=== PATIENT | male | born 1935 | race Caucasian/White ===

== ENCOUNTER → 2016-09-26 | Outpatient (CLI) | payer MEDICARE, OTHER ==
[~2016-09-26] MED LIST: REGADENOSON 0.4 MG/5 ML SYRINGE IV ONE
--- NOTE | 2016-09-26 11:52 | NM ---
EXAMINATION TYPE: NM stress cardiolite complete DATE OF EXAM: 09/26/2016 COMPARISON: NONE HISTORY: Atherosclerotic heart disease per order. History of hypertension, diabetes, and prior heart catheterization with three-vessel CABG presents with palpitations per patient. TECHNIQUE: After the intravenous administration of 10.96 mCi Tc 99m Sestamibi - Rest images obtained 45 minutes post injection. The patient exercised using a VIRGILIO protocol and 1 minute prior to peak exercise was injected with 27.3 mCi Tc 99m Sestamibi - Stress images obtained 20 minutes post inject ion. FINDINGS: Targeted heart rate was achieved during performance of the study. Review of stress and rest SPECT huong ges demonstrates no distinct perfusion abnormality. Gated analysis shows normal wall motion with an estimated left ventricular ejection fraction of 65 %. IMPRESSION: No scintigraphic evidence for reversible ischemia
--- NOTE | 2016-09-26 12:34 | EST ---
DATE OF SERVICE: 09/26/16 TYPE OF REPORT: Stress Cardiolite Scan INDICATIONS: Palpitations. BASELINE HEART RATE: 52 BASELINE BLOOD PRESSURE: 153/64 MAXIMUM HEART RATE: 107 MAXIMUM BLOOD PRESSURE: 22/60 85% MPHR 119 100% MPHR 145 METS: 8.1 MAXIMUM STAGE REACHED: II TOTAL EXERCISE TIME: 6:45 minutes Baseline EKG revealed a sinus mechanism with first degree AV block and rhythm strip suggestive of Wenckebach type phenomenon with narrow QRS. The patient's EKG therefore, revealed second degree AV block without ST segment changes. He was advised Lexiscan stress test but I switched it to the walking mainly because of conduction system disease. The patient walked for six minutes 45 seconds, showed a maximum heart rate of 110 beats per minute, had right sided PVC. No angina. Part of the stress test is considered inconclusive. The LA interval actually got better with exercise. This is an inconclusive stress test by EKG criteria without angina but isolated PVCs are noted. The nuclear scan images which are more pertinent will be reported by the radiologist. If ischemia is suspected, coronary angiography may be a better approach and I discussed this with referring Dr. Tien Woody. [place]
== END ==
LOC: RADNMMAIN 08:56
PROVIDERS: ATTEND Internal Medicine Cardiovascular Disease
DX: I25.10 Atherosclerotic heart disease of native coronary artery without angina pectoris (principal); R94.39 Abnormal result of other cardiovascular function study
CPT/HCPCS: 93017; 78452; A9500

== ENCOUNTER 2016-11-08 13:59 | Inpatient (IN) | payer MEDICARE, OTHER ==
[2016-11-08] MEDS ORDERED: SODIUM CHLORIDE 0.9% 500 ML IV STA (14:19)
--- NOTE | 2016-11-08 14:25 | ED ---
General Adult HPI - General Chief complaint: Dizziness Stated complaint: NEAR SYNCOPE Time Seen by Provider: 11/08/16 14:05 Source: patient, RN notes reviewed Mode of arrival: ambulatory Limitations: no limitations - History of Present Illness Initial comments: This is an 80-year-old male with past medical history significant for bypass surgery hypertension and diabetes. Patient states today while sitting at home he became very dizzy and his chair. Patient states he felt so uncomfortable that he did not believe he can stand. Patient states he also was feeling some extremely strong heartbeats which felt like extra beats. Patient states he had no chest pain he denies any shortness of breath or difficulty breathing. Patient states currently lying in bed he feels better. Patient denies any recent fever chills or cough. Patient denies headache patient denies any numbness weakness. Patient states he never felt as though he was given a passout but he thought he might fall over.. Patient denies any abdominal pain patient denies nausea vomiting diarrhea recently. - Related Data Home Medications Medication Instructions Recorded Confirmed Aspirin 81 mg PO HS 11/08/16 11/08/16 Atorvastatin Calcium [Lipitor] 80 mg PO HS 11/08/16 11/08/16 Multivitamins, Thera [Multivitamin 1 tab PO DAILY 11/08/16 11/08/16 (formulary)] Nitroglycerin Sl Tabs [Nitrostat] 0.4 mg SUBLINGUAL Q5M PRN 11/08/16 11/08/16 Potassium Chloride [Klor-Con 10] 10 meq PO DAILY@1200 11/08/16 11/08/16 Valsartan [Diovan] 320 mg PO HS 11/08/16 11/08/16 hydrALAZINE HCL [Hydralazine HCl] 50 mg PO QAM 11/08/16 11/08/16 hydrALAZINE HCL [Hydralazine HCl] 50 mg PO TID 11/08/16 11/08/16 metFORMIN HCL [Glucophage] 500 mg PO AC-BID 11/08/16 11/08/16 Allergies Allergy/AdvReac Type Severity Reaction Status Date / Time No Known Allergies Allergy Verified 11/08/16 14:27 Review of Systems ROS Statement: Those systems with pertinent positive or pertinent negative responses have been documented in the HPI. ROS Other: All systems not noted in ROS Statement are negative. Past Medical History Past Medical History: Atrial Fibrillation, Diabetes Mellitus, Hyperlipidemia, Hypertension History of Any Multi-Drug Resistant Organisms: None Reported Past Surgical History: Coronary Bypass/CABG Additional Past Surgical History / Comment(s): prostate removal Past Psychological History: No Psychological Hx Reported Past Alcohol Use History: None Reported, Occasional Past Drug Use History: None Reported General Exam - General Exam Comments Initial Comments: GENERAL: Patient is well-developed and well-nourished. Patient is nontoxic and well- hydrated and is in mild distress. ENT: Neck is soft and supple. No significant lymphadenopathy is noted. Oropharynx is clear. Moist mucous membranes. Neck has full range of motion without eliciting any pain. EYES: The sclera were anicteric and conjunctiva were pink and moist. Extraocular movements were intact and pupils were equal round and reactive to light. Eyelids were unremarkable. PULMONARY: Unlabored respirations. Good breath sounds bilaterally. No audible rales rhonchi or wheezing was noted. CARDIOVASCULAR: There is a regular rate and rhythm without any murmurs gallops or rubs. ABDOMEN: Soft and nontender with normal bowel sounds. No palpable organomegaly was noted. There is no palpable pulsatile mass. SKIN: Skin is clear with no lesions or rashes and otherwise unremarkable. NEUROLOGIC: Patient is alert and oriented x3. Cranial nerves II through XII are grossly intact. Motor and sensory are also intact. Normal speech, volume and content. Symmetrical smile. MUSCULOSKELETAL: Normal extremities with adequate strength and full range of motion. No lower extremity swelling or edema. No calf tenderness. LYMPHATICS: No significant lymphadenopathy is noted PSYCHIATRIC: Normal psychiatric evaluation. Normal interpersonal interactions appears functionally intact in deals appropriately with others. No signs of depression. No signs of anxiety. Limitations: no limitations Course Vital Signs 11/08/16 11/08/16 11/08/16 14:02 15:00 15:02 Temperature 97.6 F 98.8 F Pulse Rate 67 65 Pulse Rate [ Sitting] Pulse Rate [ Standing] Pulse Rate [ 65 Supine] Respiratory 18 18 18 Rate Blood Pressure 161/57 158/70 Blood Pressure [Sitting] Blood Pressure [Standing] Blood Pressure 158/70 [Supine] O2 Sat by Pulse 98 97 Oximetry 11/08/16 11/08/16 15:03 15:06 Temperature Pulse Rate Pulse Rate [ 73 Sitting] Pulse Rate [ 75 Standing] Pulse Rate [ Supine] Respiratory 18 18 Rate Blood Pressure Blood Pressure 176/87 [Sitting] Blood Pressure 163/69 [Standing] Blood Pressure [Supine] O2 Sat by Pulse Oximetry Medical Decision Making - Medical Decision Making EKG shows sinus rhythm with a second-degree AV block it looks like a type II patient also has quite a few PVCs rate is 67 bpm TN interval is 274 Miguel is 86 Q-T intervals 484 QTC is 511. X-ray shows no acute abnormality. Patient has had no further symptoms while lying in bed. I spoke with Dr. Lovett he wanted the patient to be admitted and have cardiology consult I wrote admitting orders I consult to cardiology. - Lab Data Result diagrams: 11/08/16 14:17 11/08/16 14:17 Lab Results 11/08/16 11/08/16 11/08/16 Range/Units 14:17 14:17 14:17 WBC 7.6 (3.8-10.6) k/uL RBC 4.12 L (4.30-5.90) m/uL Hgb 13.3 (13.0-17.5) gm/dL Hct 38.5 L (39.0-53.0) % MCV 93.6 (80.0-100.0) fL MCH 32.2 (25.0-35.0) pg MCHC 34.4 (31.0-37.0) g/dL RDW 12.9 (11.5-15.5) % Plt Count 255 (150-450) k/uL Neutrophils % 72 % Lymphocytes % 20 % Monocytes % 5 % Eosinophils % 2 % Basophils % 0 % Neutrophils # 5.5 (1.3-7.7) k/uL Lymphocytes # 1.5 (1.0-4.8) k/uL Monocytes # 0.4 (0-1.0) k/uL Eosinophils # 0.2 (0-0.7) k/uL Basophils # 0.0 (0-0.2) k/uL PT (9.0-12.0) sec INR (<1.2) APTT (22.0-30.0) sec Sodium 140 (137-145) mmol/L Potassium 3.9 (3.5-5.1) mmol/L Chloride 107 (98-107) mmol/L Carbon Dioxide 22 (22-30) mmol/L Anion Gap 11 mmol/L BUN 29 H (9-20) mg/dL Creatinine 1.58 H (0.66-1.25) mg/dL Est GFR (MDRD) Af Amer 51 (>60 ml/min/1.73 sqM) Est GFR (MDRD) Non-Af 42 (>60 ml/min/1.73 sqM) Glucose 162 H (74-99) mg/dL Calcium 9.1 (8.4-10.2) mg/dL Total Bilirubin 0.6 (0.2-1.3) mg/dL AST 25 (17-59) U/L ALT 32 (21-72) U/L Alkaline Phosphatase 70 (38-126) U/L Total Creatine Kinase 44 L (55-170) U/L CK-MB (CK-2) 0.4 (0.0-2.4) ng/mL CK-MB (CK-2) Rel Index 0.9 Troponin I 0.013 (0.000-0.034) ng/mL Total Protein 6.2 L (6.3-8.2) g/dL Albumin 3.5 (3.5-5.0) g/dL Urine Color Urine Appearance (Clear) Urine pH (5.0-8.0) Ur Specific [place] (1.001-1.035) Urine Protein (Negative) Urine Glucose (UA) (Negative) Urine Ketones (Negative) Urine Blood (Negative) Urine Nitrite (Negative) Urine Bilirubin (Negative) Urine Urobilinogen (<2.0) mg/dL Ur Leukocyte Esterase (Negative) 11/08/16 11/08/16 Range/Units 14:17 15:13 WBC (3.8-10.6) k/uL RBC (4.30-5.90) m/uL Hgb (13.0-17.5) gm/dL Hct (39.0-53.0) % MCV (80.0-100.0) fL MCH (25.0-35.0) pg MCHC (31.0-37.0) g/dL RDW (11.5-15.5) % Plt Count (150-450) k/uL Neutrophils % % Lymphocytes % % Monocytes % % Eosinophils % % Basophils % % Neutrophils # (1.3-7.7) k/uL Lymphocytes # (1.0-4.8) k/uL Monocytes # (0-1.0) k/uL Eosinophils # (0-0.7) k/uL Basophils # (0-0.2) k/uL PT 10.5 (9.0-12.0) sec INR 1.0 (<1.2) APTT 24.3 (22.0-30.0) sec Sodium (137-145) mmol/L Potassium (3.5-5.1) mmol/L Chloride (98-107) mmol/L Carbon Dioxide (22-30) mmol/L Anion Gap mmol/L BUN (9-20) mg/dL Creatinine (0.66-1.25) mg/dL Est GFR (MDRD) Af Amer (>60 ml/min/1.73 sqM) Est GFR (MDRD) Non-Af (>60 ml/min/1.73 sqM) Glucose (74-99) mg/dL Calcium (8.4-10.2) mg/dL Total Bilirubin (0.2-1.3) mg/dL AST (17-59) U/L ALT (21-72) U/L Alkaline Phosphatase (38-126) U/L Total Creatine Kinase (55-170) U/L CK-MB (CK-2) (0.0-2.4) ng/mL CK-MB (CK-2) Rel Index Troponin I (0.000-0.034) ng/mL Total Protein (6.3-8.2) g/dL Albumin (3.5-5.0) g/dL Urine Color Yellow Urine Appearance Clear (Clear) Urine pH 6.5 (5.0-8.0) Ur Specific [place] 1.012 (1.001-1.035) Urine Protein Negative (Negative) Urine Glucose (UA) Negative (Negative) Urine Ketones Negative (Negative) Urine Blood Negative (Negative) Urine Nitrite Negative (Negative) Urine Bilirubin Negative (Negative) Urine Urobilinogen <2.0 (<2.0) mg/dL Ur Leukocyte Esterase Negative (Negative) Disposition Clinical Impression: Dizziness, Second degree AV block, PVCs (premature ventricular contractions) Disposition: ADMITTED IP TO THIS [facility] Referrals: Tato Bell Jr, [Primary Care Provider] - 1-2 days Time of Disposition: 16:15
[2016-11-08 14:41] LABS: Basophils % (A) 0 %; CH 31.4; CHCM 33.7; Eosinophils # (A) 0.2 k/uL (0-0.7); Eosinophils % (A) 2 %; HCT 38.5 % (39.0-53.0); HDW 2.37; HGB 13.3 gm/dL (13.0-17.5); Luc % (Auto) 1; Lymphocytes # (A) 1.5 k/uL (1.0-4.8); Lymphocytes % (A) 20 %; MCH 32.2 pg (25.0-35.0); MCHC 34.4 g/dL (31.0-37.0); MCV 93.6 fL (80.0-100.0); Mean Platelet Volume 7.6; Monocytes # (A) 0.4 k/uL (0-1.0); Monocytes % (A) 5 %; Neutrophils # (A) 5.5 k/uL (1.3-7.7); Neutrophils % (A) 72 %; RBC 4.12 m/uL (4.30-5.90); RDW 12.9 % (11.5-15.5); WBC 7.6 k/uL (3.8-10.6); WBC (Perox) 7.69
[2016-11-08 14:44] LABS: Calcium 9.1 mg/dL (8.4-10.2); Potassium 3.9 mmol/L (3.5-5.1); Total Bilirubin 0.6 mg/dL (0.2-1.3); Total Protein 6.2 g/dL (6.3-8.2)
--- NOTE | 2016-11-08 15:00 | XR ---
EXAMINATION TYPE: XR chest 2V DATE OF EXAM: 11/08/2016 COMPARISON: NONE HISTORY: History of open heart surgery presents with weakness and dizziness. Syncope. TECHNIQUE: Frontal and lateral views of the chest are obtained. FINDINGS: Post CABG changes with mediastinal clips and sternal wires is present. There is no focal a ir space opacity, pleural effusion, or pneumothorax seen. The cardiac silhouette size is mildly enla rged. The osseous structures are intact. IMPRESSION: Mild cardiomegaly without acute pulmonary process.
[2016-11-08 15:02] LABS: Partial Thromboplastin Time 24.3 sec (22.0-30.0); Prothrombin Time 10.5 sec (9.0-12.0)
[2016-11-08 15:11] LABS: Creatine Kinase MB 0.4 ng/mL (0.0-2.4); Troponin I 0.013 ng/mL (0.000-0.034)
[2016-11-08 15:24] LABS: Appearance,Urine Clear (Clear); Bilirubin,Urine Negative (Negative); Glucose,Urine (UA) Negative (Negative); Ketones,Urine Negative (Negative); Leukocyte Esterase,Urine Negative (Negative); Nitrite,Urine Negative (Negative); PH, Urine 6.5 (5.0-8.0); Protein,Urine Negative (Negative); Specific Gravity,Urine 1.012 (1.001-1.035); UA Billing (MACRO vs. MICRO) CHEM; Urobilinogen,Urine <2.0 mg/dL (<2.0)
[2016-11-08] MEDS ORDERED: SODIUM CHLORIDE 0.9% 1,000 ML IV ONE (16:18)
[2016-11-08] MEDS ORDERED: NITROGLYCERIN SL TABS 0.4 MG TAB SUBLINGUAL PRN (21:22)
[2016-11-08] MEDS: ATORVASTATIN 80 MG TAB PO SCH (21:35)
[2016-11-08] MEDS ORDERED: hydrALAZINE HCL 50 MG TAB PO SCH (22:00)
[2016-11-08] MEDS ORDERED: hydrALAZINE HCL 50 MG TAB PO STA (23:00)
[2016-11-08 23:51] VITALS: BMI 27.1
[2016-11-09] MEDS: hydrALAZINE HCL 50 MG TAB PO SCH ×4 (00:06→20:56)
[2016-11-09 06:11] LABS: Glucose,Whole Blood 96 mg/dL (75-99)
--- NOTE | 2016-11-09 09:27 | P.CRDCN ---
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 He has history of hypertension, type 2 diabetes, hyperlipidemia, history of prostate cancer with prior prostate removal. Patient presents to the hospital with symptoms of dizziness and lightheadedness. He states that yesterday he noticed both of his hands became numb and tingly, shortly thereafter patient states he became dizzy and felt lightheaded, he states that symptoms have progressed to the point where he felt that he needed to lie down. States that he felt his heart occasionally pounding. EMS was called. Blood pressure on EMS arrival 120/40, heart rate 37 , blood sugars 1:30, 96% on room air. EKG on arrival here showed a sinus rhythm with second-degree type I heart block and occasional PVC. Chest x-ray revealed mild cardiomegaly without any acute pulmonary process. Blood pressure on arrival here 160/50, heart rate 60, 98% on 2 L. Blood pressure this morning 149/80, heart rate in the 50s. CBC, WBC 7.6, hemoglobin 13.3, platelet count 255. Potassium 3.9, BUN 29, creatinine 1.5. Troponin 0.013. According to the patient, he states over the past several months he has been noted to be somewhat bradycardic and his emergency medical dispatcher had taken him off Toprol in June or July of this year. At present he is not on any rate lowering medications. Past Medical History Past Medical History: Atrial Fibrillation, Diabetes Mellitus, Hyperlipidemia, Hypertension History of Any Multi-Drug Resistant Organisms: None Reported Past Surgical History: Coronary Bypass/CABG Additional Past Surgical History / Comment(s): prostate removal Past Anesthesia/Blood Transfusion Reactions: No Reported Reaction Past Psychological History: No Psychological Hx Reported Smoking Status: Never smoker Past Alcohol Use History: None Reported, Occasional Past Drug Use History: None Reported - Past Family History Mother Family Medical History: CVA/TIA Additional Family Medical History / Comment(s): mother had CVA at age 85 Father Family Medical History: Cancer Additional Family Medical History / Comment(s): from throat cancer Brother(s) Family Medical History: Cancer Additional Family Medical History / Comment(s): from lung cancer Medications and Allergies Home Medications Medication Instructions Recorded Confirmed Type Aspirin 81 mg PO HS 11/08/16 11/08/16 History Atorvastatin Calcium [Lipitor] 80 mg PO HS 11/08/16 11/08/16 History Multivitamins, Thera [Multivitamin 1 tab PO DAILY 11/08/16 11/08/16 History (formulary)] Nitroglycerin Sl Tabs [Nitrostat] 0.4 mg SUBLINGUAL Q5M PRN 11/08/16 11/08/16 History Potassium Chloride [Klor-Con 10] 10 meq PO DAILY@1200 11/08/16 11/08/16 History Valsartan [Diovan] 320 mg PO HS 11/08/16 11/08/16 History hydrALAZINE HCL [Hydralazine HCl] 100 mg PO TID 11/08/16 11/08/16 History metFORMIN HCL [Glucophage] 500 mg PO AC-BID 11/08/16 11/08/16 History Allergies Allergy/AdvReac Type Severity Reaction Status Date / Time No Known Allergies Allergy Verified 11/08/16 23:39 Physical Exam Vitals: Vital Signs Temp Pulse Pulse Pulse Pulse Resp BP 11/09/16 08:30 96.8 F L 79 18 11/09/16 04:00 97.4 F L 52 L 17 11/09/16 00:00 97.3 F L 68 17 11/08/16 23:17 64 18 189/85 11/08/16 23:07 60 18 195/91 11/08/16 22:47 65 18 198/62 11/08/16 22:13 98.0 F 63 18 192/78 11/08/16 21:39 98.1 F 46 L 18 165/78 11/08/16 20:24 68 18 183/81 11/08/16 19:21 50 L 18 150/63 11/08/16 17:00 97.9 F 63 18 135/60 11/08/16 15:06 75 18 11/08/16 15:03 73 18 11/08/16 15:02 98.8 F 65 18 158/70 11/08/16 15:00 50 L 65 18 11/08/16 14:02 97.6 F 67 18 161/57 BP BP BP Pulse Ox 11/09/16 08:30 149/86 96 11/09/16 04:00 127/37 94 L 11/09/16 00:00 157/87 94 L 11/08/16 23:17 99 11/08/16 23:07 99 11/08/16 22:47 99 11/08/16 22:13 98 11/08/16 21:39 97 11/08/16 20:24 97 11/08/16 19:21 98 11/08/16 17:00 96 11/08/16 15:06 163/69 11/08/16 15:03 176/87 11/08/16 15:02 97 11/08/16 15:00 158/70 11/08/16 14:02 98 Intake and Output 11/08/16 11/09/16 11/09/16 22:59 06:59 14:59 Intake Total 375 Balance 375 Intake: IV 375 Sodium Chloride 0.9% 1, 375 000 ml @ 75 mls/hr IV . [id number] Rx#:[id number] Other: Voiding Method Toilet # Voids 1 Weight 76.1 kg 76.2 kg PHYSICAL EXAMINATION: HEENT: Head is atraumatic, normocephalic. Pupils equal, round. Neck is supple. There is no elevated jugular venous pressure. HEART EXAMINATION: Heart S1, S2 normal. No murmur or gallop heard. CHEST EXAMINATION: Lungs are clear to auscultation and precussion. No chest wall tenderness is noted on palpation or with deep breathing. ABDOMEN: Soft, nontender. Bowel sounds are heard. No organomegaly noted. EXTREMITIES: 2+ peripheral pulses with no evidence of peripheral edema and no calf tenderness noted. NEUROLOGIC patient is awake, alert and oriented -3. . Results 11/08/16 14:17 11/08/16 14: Cardiac Enzymes 11/08/16 11/08/16 Range/Units : 14: AST 25 (17-59) U/L CK-MB (CK-2) 0.4 (0.0-2.4) ng/mL Troponin I 0.013 (0.000-0.034) ng/mL Coagulation 11/08/16 Range/Units 14:17 PT 10.5 (9.0-12.0) sec APTT 24.3 (22.0-30.0) sec CBC 11/08/16 Range/Units 14:17 WBC 7.6 (3.8-10.6) k/uL RBC 4.12 L (4.30-5.90) m/uL Hgb 13.3 (13.0-17.5) gm/dL Hct 38.5 L (39.0-53.0) % Plt Count 255 (150-450) k/uL Comprehensive Metabolic Panel 11/08/16 Range/Units 14:17 Sodium 140 (137-145) mmol/L Potassium 3.9 (3.5-5.1) mmol/L Chloride 107 (98-107) mmol/L Carbon Dioxide 22 (22-30) mmol/L BUN 29 H (9-20) mg/dL Creatinine 1.58 H (0.66-1.25) mg/dL Glucose 162 H (74-99) mg/dL Calcium 9.1 (8.4-10.2) mg/dL AST 25 (17-59) U/L ALT 32 (21-72) U/L Alkaline Phosphatase 70 (38-126) U/L Total Protein 6.2 L (6.3-8.2) g/dL Albumin 3.5 (3.5-5.0) g/dL Current Medications Generic Name Dose Route Start Last Admin Trade Name Freq PRN Reason Stop Dose Admin Aspirin 81 mg 11/09/16 09:00 Aspirin PO DAILY [facility] Atorvastatin Calcium 80 mg 11/08/16 21:00 11/08/16 21:35 Lipitor PO Not Given HS [facility] Hydralazine HCl 100 mg 11/08/16 23:30 11/09/16 00:06 Apresoline PO Not Given TID [facility] Metformin HCl 500 mg 11/09/16 07:30 Glucophage PO BID-W/MEALS [facility] Multivitamins 1 each 11/09/16 12:00 Theragran PO DAILY@1200 [facility] Nitroglycerin 0.4 mg 11/08/16 21:22 Nitrostat SUBLINGUAL Q5M PRN Chest Pain Potassium Chloride 10 meq 11/09/16 09:00 K-Dur 10 PO DAILY [facility] Valsartan 320 mg 11/09/16 21:00 Diovan PO HS [facility] Intake and Output 11/08/16 11/09/16 11/09/16 22:59 06:59 14:59 Intake Total 375 Balance 375 Intake: IV 375 Sodium Chloride 0.9% 1, 375 000 ml @ 75 mls/hr IV . [id number] ONE Rx#:[id number] Other: Voiding Method Toilet # Voids 1 Weight 76.1 kg 76.2 kg 11/08/16 14:17 11/08/16 14:17 EKG Interpretations (text) EKG shows sinus rhythm with second-degree type I heart block and occasional PVCs. Assessment and Plan Plan: Assessment and plan #1 symptoms of dizziness and lightheadedness, EKG shows second-degree type I heart block #2 known history of coronary artery disease with prior bypass surgery #3 hypertension #4 hyperlipidemia # 5 history of prostate cancer with prior prostate removal #6 type 2 diabetes Plan We will obtain an echocardiogram with Doppler study, obtain free T4 and TSH level. Patient is not on any rate lowering medications, was explained to the patient and his that he may require a permanent pacemaker. Further recommendations to follow. DNP note has been reviewed, I agree with a documented findings and plan of care. Patient was seen and examined.
--- NOTE | 2016-11-09 11:07 | P.HPIM ---
History of Present Illness H&P Date: 11/09/16 Chief Complaint: Dizziness 80-year-old male who presented to the emergency room on 11/08/2016 with a chief complaint of dizziness. The patient had a history of coronary artery disease with prior CABG, hypertension, and diabetes mellitus. He states he sees Dr. Woody as his primary head refrigeration engineer. He states he underwent a stress test the beginning of the year but was unable to get his maximum heart rate achieved. He states he underwent a repeat stress test last month. The patient states he was at home last night and first noticed that his hands became numb. He states he began to feel lightheaded and dizzy and decided to call EMS and come to the hospital for evaluation. In the emergency room a chest x-ray was completed which showed mild cardiomegaly but was otherwise unremarkable. An EKG was performed which showed sinus rhythm with a second-degree block and PVCs. He was admitted to the hospital for further evaluation under the care of Dr. Lovett. Consults were placed to cardiology. Review of Systems Those systems with pertinent positive or pertinent negative responses have been documented in the HPI Past Medical History Past Medical History: Atrial Fibrillation, Diabetes Mellitus, Hyperlipidemia, Hypertension History of Any Multi-Drug Resistant Organisms: None Reported Past Surgical History: Coronary Bypass/CABG Additional Past Surgical History / Comment(s): prostate removal Past Anesthesia/Blood Transfusion Reactions: No Reported Reaction Past Psychological History: No Psychological Hx Reported Smoking Status: Never smoker Past Alcohol Use History: None Reported, Occasional Past Drug Use History: None Reported - Past Family History Mother Family Medical History: CVA/TIA Additional Family Medical History / Comment(s): mother had CVA at age 85 Father Family Medical History: Cancer Additional Family Medical History / Comment(s): from throat cancer Brother(s) Family Medical History: Cancer Additional Family Medical History / Comment(s): from lung cancer Medications and Allergies Home Medications Medication Instructions Recorded Confirmed Type Aspirin 81 mg PO HS 11/08/16 11/08/16 History Atorvastatin Calcium [Lipitor] 80 mg PO HS 11/08/16 11/08/16 History Multivitamins, Thera [Multivitamin 1 tab PO DAILY 11/08/16 11/08/16 History (formulary)] Nitroglycerin Sl Tabs [Nitrostat] 0.4 mg SUBLINGUAL Q5M PRN 11/08/16 11/08/16 History Potassium Chloride [Klor-Con 10] 10 meq PO DAILY@1200 11/08/16 11/08/16 History Valsartan [Diovan] 320 mg PO HS 11/08/16 11/08/16 History hydrALAZINE HCL [Hydralazine HCl] 100 mg PO TID 11/08/16 11/08/16 History metFORMIN HCL [Glucophage] 500 mg PO AC-BID 11/08/16 11/08/16 History Allergies Allergy/AdvReac Type Severity Reaction Status Date / Time No Known Allergies Allergy Verified 11/08/16 23:39 Physical Exam Vitals: Vital Signs Temp Pulse Pulse Pulse Pulse Resp BP 11/09/16 08:30 96.8 F L 79 18 11/09/16 04:00 97.4 F L 52 L 17 11/09/16 00:00 97.3 F L 68 17 11/08/16 23:17 64 18 189/85 11/08/16 23:07 60 18 195/91 11/08/16 22:47 65 18 198/62 11/08/16 22:13 98.0 F 63 18 192/78 11/08/16 21:39 98.1 F 46 L 18 165/78 11/08/16 20:24 68 18 183/81 11/08/16 19:21 50 L 18 150/63 11/08/16 17:00 97.9 F 63 18 135/60 11/08/16 15:06 75 18 11/08/16 15:03 73 18 11/08/16 15:02 98.8 F 65 18 158/70 11/08/16 15:00 50 L 65 18 11/08/16 14:02 97.6 F 67 18 161/57 BP BP BP Pulse Ox 11/09/16 08:30 149/86 96 11/09/16 04:00 127/37 94 L 11/09/16 00:00 157/87 94 L 11/08/16 23:17 99 11/08/16 23:07 99 11/08/16 22:47 99 11/08/16 22:13 98 11/08/16 21:39 97 11/08/16 20:24 97 11/08/16 19:21 98 09/20/17 17:00 96 11/08/16 15:06 163/69 11/08/16 15:03 176/87 11/08/16 15:02 97 11/08/16 15:00 158/70 11/08/16 14:02 98 Intake and Output 11/08/16 11/09/16 11/09/16 22:59 06:59 14:59 Intake Total 375 Balance 375 Intake: IV 375 Sodium Chloride 0.9% 1, 375 000 ml @ 75 mls/hr IV . [id number] ONE Rx#:[id number] Other: Voiding Method Toilet # Voids 1 Weight 76.1 kg 76.2 kg GENERAL: Alert and oriented. Appears in no acute distress. Pleasant. RESPIRATORY: Lungs clear bilaterally. No use of accessory muscles. Patient maintaining oxygen saturation greater than 92%. CARDIOVASCULAR: Regular rhythm with occasional premature ventricular contractions. S1 and S2 noted. No murmurs auscultated. No JVD noted. EXTREMITIES: No edema noted. Palpable pedal pulses +2. ABDOMEN: No distention noted. Abdomen soft and round. Normal active bowel sounds auscultated 4 quadrants. No pain or tenderness noted upon palpation. Results CBC & Chem 7: 11/08/16 14:17 11/08/16 14:17 Labs: Abnormal Lab Results - Last 24 Hours (Table) 11/08/16 11/08/16 11/08/16 Range/Units 14:17 14:17 14:17 RBC 4.12 L (4.30-5.90) m/uL Hct 38.5 L (39.0-53.0) % BUN 29 H (9-20) mg/dL Creatinine 1.58 H (0.66-1.25) mg/dL Glucose 162 H (74-99) mg/dL Total Creatine Kinase 44 L (55-170) U/L Total Protein 6.2 L (6.3-8.2) g/dL Thrombosis Risk Factor Assmnt - Choose All That Apply Any of the Below Risk Factors Present?: Yes Each Factor Represents 1 point: Obesity (BMI >25) Other Risk Factors: Yes Each Risk Factor Represents 3 Points: Age 75 years or older Other congenital or acquired thrombophilia - If yes, enter type in comment: No Thrombosis Risk Factor Assessment Total Risk Factor Score: 4 Thrombosis Risk Factor Assessment Level: Moderate Risk Assessment and Plan Plan: ASSESSMENT: -Second-degree type I heart block, present on admission -Dizziness, present on admission, secondary to second-degree type I heart block -Coronary artery disease with prior CABG -Acute kidney injury, suspected, Cr. 1.58 on admission, no baseline available -Essential hypertension -Diabetes mellitus, type II PLAN: -Cardiology on consult. Appreciate recommendations and input. -May possibly need permanent pacemaker insertion. If so, patient is agreeable but would like to speak with his head refrigeration engineer, Dr. Woody before proceeding. -Await echocardiogram results -Await TSH results -Resume home meds as appropriate -Monitor labs -GI prophylaxis: Pepcid 20 mg by mouth BID -DVT prophylaxis: Heparin 5000 units subcu every 8 hours -Monitor vital signs and address as appropriate -Monitor capillary blood glucose and address and appropriate The above impression and plan of care have been discussed and directed by signing physician. Manasa Fletcher, nurse practitioner, acting as scribe for signing physician.
--- NOTE | 2016-11-09 11:12 | P.PN ---
Progress Note - Text Addendum Upon review of subsequent EKG and rhythm strips, it appears that the patient is in complete heart block. He has been advised to undergo implantation of a permanent pacemaker. The risks and the benefits were explained to him in detail. DNP note has been reviewed, I agree with a documented findings and plan of care. Patient was seen and examined.
--- NOTE | 2016-11-09 11:12 | ECHOF ---
Referral Reason:Heart block MEASUREMENTS -------- HEIGHT: 167.6 cm WEIGHT: 75.8 kg BP: 149/86 RVIDd: 3.6 cm (< 3.3) IVSd: 1.3 cm (0.6 - 1.1) LVIDd: 4.8 cm (3.9 - 5.3) LVPWd: 1.3 cm (0.6 - 1.1) IVSs: 1.6 cm LVIDs: 4.6 cm LVPWs: 1.7 cm LA Diam: 3.9 cm (2.7 - 3.8) LAESV Index (A-L): 33.07 ml/m Ao Diam: 3.5 cm (2.0 - 3.7) AV Cusp: 2.2 cm (1.5 - 2.6) MV EXCURSION: 19.089 mm (> 18.000) MV EF SLOPE: 30 mm/s (70 - 150) EPSS: 0.3 cm AV maxP.44 mmHg AV meanP.33 mmHg RAP: 5.00 mmHg RVSP: 26.68 mmHg FINDINGS -------- This was a technically good study. The left ventricular size is normal. There is mild concentric left ventricular hypertrophy. Overall left ventricular systolic function is normal with, an EF between 65 - 70 %. Basal inferior LV wall motion is normal. The right ventricle is mildly enlarged. LA is midly dilated 29-33ml/m2. The right atrium is normal in size. Aortic valve is trileaflet and is mildly thickened. Mild mitral annular calcification present. There is trace mitral regurgitation. Mild tricuspid regurgitation present. Right ventricular systolic pressure is normal at < 35 mmHg. Trace/mild (physiologic) pulmonic regurgitation. The aortic root size is normal. Normal inferior vena cava with normal inspiratory collapse consistent with estimated right atrial pressure of 5 mmHg. There is no pericardial effusion. CONCLUSIONS -------- 1. This was a technically good study. 2. There is trace mitral regurgitation. 3. Mild tricuspid regurgitation present. 4. Right ventricular systolic pressure is normal at < 35 mmHg. 5. Trace/mild (physiologic) pulmonic regurgitation. 6. The aortic root size is normal. 7. Normal inferior vena cava with normal inspiratory collapse consistent with estimated right atrial pressure of 5 mmHg. 8. There is no pericardial effusion. 9. The left ventricular size is normal. 10. There is mild concentric left ventricular hypertrophy. 11. Overall left ventricular systolic function is normal with, an EF between 65 - 70 %. 12. The right ventricle is mildly enlarged. 13. LA is midly dilated 29-33ml/m2. 14. The right atrium is normal in size. 15. Aortic valve is trileaflet and is mildly thickened. 16. Mild mitral annular calcification present. SPICE FUMIGATOR: Shelby Childs RDCS
[2016-11-09 12:05] LABS: Glucose,Whole Blood 117 mg/dL (75-99)
[2016-11-09] MEDS: metFORMIN 500 MG TAB PO SCH ×2 (12:31→19:47)
[2016-11-09] MEDS: ASPIRIN 81 MG PO SCH (12:32)
[2016-11-09] MEDS: POTASSIUM CHLORIDE ER 10 MEQ TAB.ER.PRT PO SCH (12:32)
[2016-11-09] MEDS: MULTIVITAMINS, THERA 1 EACH TAB PO SCH (12:32)
[2016-11-09] MEDS: HEPARIN SODIUM,PORCINE 5,000 UNIT/ML 1 ML VIAL SQ SCH ×2 (15:52→23:24)
[2016-11-09 17:02] LABS: Glucose,Whole Blood 98 mg/dL (75-99)
[2016-11-09] MEDS: ATORVASTATIN 80 MG TAB PO SCH (20:55)
[2016-11-09] MEDS: FAMOTIDINE 20 MG TAB PO SCH (20:56)
[2016-11-09] MEDS: VALSARTAN 160 MG TAB PO SCH (20:56)
[2016-11-09 21:01] LABS: Glucose,Whole Blood 94 mg/dL (75-99)
[2016-11-10 06:32] LABS: Glucose,Whole Blood 87 mg/dL (75-99)
[2016-11-10 06:35] LABS: Basophils % (A) 1 %; CH 32.4; Eosinophils # (A) 0.2 k/uL (0-0.7); Eosinophils % (A) 3 %; HCT 36.6 % (39.0-53.0); HDW 2.24; HGB 11.8 gm/dL (13.0-17.5); Luc # (Auto) 0.09; Luc % (Auto) 2; Lymphocytes # (A) 1.4 k/uL (1.0-4.8); Lymphocytes % (A) 25 %; MCH 31.8 pg (25.0-35.0); MCHC 32.2 g/dL (31.0-37.0); Mean Platelet Volume 8.2; Monocytes # (A) 0.4 k/uL (0-1.0); Monocytes % (A) 7 %; Neutrophils # (A) 3.5 k/uL (1.3-7.7); Neutrophils % (A) 62 %; RBC 3.71 m/uL (4.30-5.90); RDW 13.4 % (11.5-15.5); WBC 5.6 k/uL (3.8-10.6); WBC (Perox) 5.73
[2016-11-10 06:39] LABS: MCV 98.6 fL (80.0-100.0)
[2016-11-10 06:43] LABS: ALT 34 U/L (21-72); AST 22 U/L (17-59); Alkaline Phosphatase 61 U/L (38-126); Anion Gap 8 mmol/L; Blood Urea Nitrogen 20 mg/dL (9-20); Calcium 8.7 mg/dL (8.4-10.2); Carbon Dioxide 22 mmol/L (22-30); Chloride 110 mmol/L (98-107); Glucose 87 mg/dL (74-99); Non-African American GFR(MDRD) 53 (>60 ml/min/1.73 sqM); Potassium 4.1 mmol/L (3.5-5.1); Sodium 140 mmol/L (137-145); Total Bilirubin 0.7 mg/dL (0.2-1.3); Total Protein 5.2 g/dL (6.3-8.2)
[2016-11-10] MEDS: metFORMIN 500 MG TAB PO SCH ×2 (06:58→22:40)
[2016-11-10] MEDS: HEPARIN SODIUM,PORCINE 5,000 UNIT/ML 1 ML VIAL SQ SCH ×3 (08:19→23:53)
[2016-11-10] MEDS: FAMOTIDINE 20 MG TAB PO SCH (08:19)
[2016-11-10] MEDS: hydrALAZINE HCL 50 MG TAB PO SCH ×3 (08:19→22:44)
[2016-11-10] MEDS: ASPIRIN 81 MG PO SCH (08:20)
[2016-11-10] MEDS: POTASSIUM CHLORIDE ER 10 MEQ TAB.ER.PRT PO SCH (08:20)
--- NOTE | 2016-11-10 08:52 | P.PN ---
Subjective Principal diagnosis: 80-year-old male who presents to the emergency room on 11/08/2016 with chief complaint of dizziness. Patient was found to be in second-degree type I heart block. Echocardiogram was completed yesterday which showed an EF of 65 and 70% . TSH was within normal range. The patient denies dizziness or lightheadedness this morning. He denies chest pain or shortness of breath. His vital signs of an stable. He's been afebrile. His oxygen saturations remain greater than 92% on room air. Cardiology on consult. Patient may need permanent pacemaker insertion. Objective - Vital Signs Vital signs: Vital Signs Temp 97.0 F L 11/10/16 04:00 Pulse 55 L 11/10/16 04:00 Resp 16 11/10/16 04:00 BP 128/60 11/10/16 04:00 Pulse Ox 93 L 11/10/16 08:43 Intake & Output 11/09/16 11/10/16 11/10/16 18:59 06:59 18:59 Intake Total 420 1312 600 Balance 420 1312 600 Intake: IV 1312 Sodium Chloride 0.9% 1, 1312 000 ml @ 75 mls/hr IV . [id number] ONE Rx#:[id number] Intake, IV Titration 600 Amount Sodium Chloride 0.9% 1, 600 000 ml @ 75 mls/hr IV . [id number] ONE Rx#:[id number] Oral 420 Other: Voiding Method Toilet # Voids 1 - Exam GENERAL: Alert and oriented. Appears in no acute distress. Pleasant. RESPIRATORY: Lungs clear bilaterally. No use of accessory muscles. Patient maintaining oxygen saturation greater than 92%. CARDIOVASCULAR: Regular rhythm with occasional premature ventricular contractions. Monitor shows second degree type 1 block. S1 and S2 noted. No murmurs auscultated. No JVD noted. EXTREMITIES: No edema noted. Palpable pedal pulses +2. ABDOMEN: No distention noted. Abdomen soft and round. Normal active bowel sounds auscultated 4 quadrants. No pain or tenderness noted upon palpation. - Labs CBC & Chem 7: 11/10/16 05:51 11/10/16 05:51 Labs: Abnormal Lab Results - Last 24 Hours (Table) 11/09/16 11/10/16 11/10/16 Range/Units 11:41 05:51 05:51 RBC 3.71 L (4.30-5.90) m/uL Hgb 11.8 L (13.0-17.5) gm/dL Hct 36.6 L (39.0-53.0) % Chloride 110 H (98-107) mmol/L Creatinine 1.30 H (0.66-1.25) mg/dL POC Glucose (mg/dL) 117 H (75-99) mg/dL Total Protein 5.2 L (6.3-8.2) g/dL Albumin 2.8 L (3.5-5.0) g/dL Assessment and Plan Plan: ASSESSMENT: -Second-degree type I heart block, present on admission -Dizziness, present on admission, secondary to second-degree type I heart block -Coronary artery disease with prior CABG -Acute kidney injury, suspected, Cr. 1.58 on admission, no baseline available, resolving -Essential hypertension -Diabetes mellitus, type II PLAN: -Cardiology on consult. Appreciate recommendations and input. -Patient to have pacemaker insertion tomorrow per cardiology -NPO after midnight -Monitor labs -GI prophylaxis: Pepcid 20 mg by mouth BID -DVT prophylaxis: hold for pacemaker insertion -Monitor vital signs and address as appropriate -Monitor capillary blood glucose and address and appropriate The above impression and plan of care have been discussed and directed by signing physician. Manasa Fletcher, nurse practitioner, acting as scribe for signing physician.
--- NOTE | 2016-11-10 09:31 | P.NPCON ---
History of Present Illness - Reason for Consult acute renal failure - History of Present Illness Reason for consultation: Acute kidney injury History of present illness: Patient is a 80-year-old male seen in renal consultation for acute kidney injury. Unclear as to what his baseline renal function is. Creatinine was elevated at 1.5 this admission and is down to 1.3 today. Patient presented to the hospital as he was feeling weak and also developed lightheadedness and dizziness. He denies any syncopal episodes but he was worried that he may lose consciousness. He was bradycardic was noted to have a second-degree heart block. He is not on any heart lowering medications. He denies any prior history of kidney disease. Denies any family history of renal disease. Denies any vomiting or diarrhea. Oral intake is good. Denies chest pain or shortness of breath. He did feel his hands and feet were somewhat cold when he initially came to the hospital but seems to have resolved now. He denies use of NSAIDs. Hemodynamically stable. No active complaints at this time. Vital signs are stable. General: The patient appeared well nourished and normally developed. HEENT: Head exam is unremarkable. Neck is without jugular venous distension. LUNGS: Lungs are clear to auscultation and percussion. Breath sounds decreased. HEART: Rate and Rhythm are regular. First and second heart sounds normal. No murmurs, rubs or gallops. ABDOMEN: Abdominal exam reveals normal bowel sounds. Non-tender and non- distended. No evidence of peritonitis. EXTREMITITES: No clubbing, cyanosis, or edema. Past Medical History Past Medical History: Atrial Fibrillation, Diabetes Mellitus, Hyperlipidemia, Hypertension History of Any Multi-Drug Resistant Organisms: None Reported Past Surgical History: Coronary Bypass/CABG Additional Past Surgical History / Comment(s): prostate removal Past Anesthesia/Blood Transfusion Reactions: No Reported Reaction Past Psychological History: No Psychological Hx Reported Smoking Status: Never smoker Past Alcohol Use History: None Reported, Occasional Past Drug Use History: None Reported - Past Family History Mother Family Medical History: CVA/TIA Additional Family Medical History / Comment(s): mother had CVA at age 85 Father Family Medical History: Cancer Additional Family Medical History / Comment(s): from throat cancer Brother(s) Family Medical History: Cancer Additional Family Medical History / Comment(s): from lung cancer Medications and Allergies Home Medications Medication Instructions Recorded Confirmed Type Aspirin 81 mg PO HS 11/08/16 11/08/16 History Atorvastatin Calcium [Lipitor] 80 mg PO HS 11/08/16 11/08/16 History Multivitamins, Thera [Multivitamin 1 tab PO DAILY 11/08/16 11/08/16 History (formulary)] Nitroglycerin Sl Tabs [Nitrostat] 0.4 mg SUBLINGUAL Q5M PRN 11/08/16 11/08/16 History Potassium Chloride [Klor-Con 10] 10 meq PO DAILY@1200 11/08/16 11/08/16 History Valsartan [Diovan] 320 mg PO HS 11/08/16 11/08/16 History hydrALAZINE HCL [Hydralazine HCl] 100 mg PO TID 11/08/16 11/08/16 History metFORMIN HCL [Glucophage] 500 mg PO AC-BID 11/08/16 11/08/16 History Allergies Allergy/AdvReac Type Severity Reaction Status Date / Time No Known Allergies Allergy Verified 11/08/16 23:39 Physical Exam Vitals: Vital Signs Temp Pulse Resp BP Pulse Ox 11/10/16 08:43 93 L 11/10/16 04:00 97.0 F L 55 L 16 128/60 93 L 11/10/16 00:00 97.3 F L 68 16 127/72 100 11/09/16 20:00 97.1 F L 77 18 131/68 95 11/09/16 15:45 97.0 F L 70 18 143/70 97 11/09/16 12:00 97.0 F L 54 L 18 146/72 95 Intake and Output 11/09/16 11/10/16 11/10/16 22:59 06:59 14:59 Intake Total 1612 600 Balance 1612 600 Intake: IV 1312 Sodium Chloride 0.9% 1, 1312 000 ml @ 75 mls/hr IV . [id number] ONE Rx#:[id number] Intake, IV Titration 600 Amount Sodium Chloride 0.9% 1, 600 000 ml @ 75 mls/hr IV . [id number] ONE Rx#:[id number] Oral 300 Other: Voiding Method Toilet Toilet # Voids 1 Results - Lab Results Most recent lab results Calcium 8.7 mg/dL (8.4-10.2) 11/10/16 05:51 11/10/16 05:51 11/10/16 05:51 Assessment and Plan Plan: Assessment: #1. Nonoliguric acute kidney injury mostly prerenal secondary to hypoperfusion from hemodynamic instability/bradycardia. Creatinine was elevated at 1.5 on admission and is down to 1.3 today. Urinalysis noted to be benign. Unclear as to what his baseline renal function is. #2. Second-degree heart block. Heart rate controlled with heart rate of 68 this morning. #3. Diabetes mellitus. #4. Benign hypertension. Controlled. Plan: Continue to avoid nephrotoxic agents and hypotensive episodes. Cardiology following. Potential pacemaker placement this admission. Check renal ultrasound. Encouraged oral intake. Repeat electrolytes in the morning. Thank you for the consultation. I will continue to follow patient with you during his hospital stay.
[2016-11-10 11:46] LABS: Glucose,Whole Blood 85 mg/dL (75-99)
[2016-11-10] MEDS: MULTIVITAMINS, THERA 1 EACH TAB PO SCH (12:11)
[2016-11-10] MEDS ORDERED: ceFAZolin 1,000 MG in SODIUM CHLORIDE 0.9% IRRIGATIO 250 ML IRRIGATION ONE ×2 (13:10→19:00)
[2016-11-10] MEDS ORDERED: ceFAZolin 2 GM in SODIUM CHLORIDE 0.9% 100 ML IVPB ONE ×2 (13:10→19:00)
--- NOTE | 2016-11-10 14:18 | P.PN ---
Subjective Principal diagnosis: near syncope This is a pleasant 80-year-old gentleman with a known history of coronary artery disease, prior coronary artery bypass grafting, hypertension, diabetes mellitus type 2, hyperlipidemia, follows with Dr. Woody. End of the patient, EKG was done and Dr. Woody's office and his beta bryon was discontinued back in July. He presents to the hospital this admission due to complaints of not feeling well, weakness in his arms, lightheadedness and feeling as if he may pass out. This occurred while sitting on the couch after a shower, did not improve after sitting for at least 10 minutes. Patient was noted to have secondary type I heart block on an EKG which was reviewed by Dr. Kirby yesterday, at that time it was felt the patient did not require permanent pacemaker. Dr. Kirby and was in to see the patient today, reviewed rhythm strips that showed 2:1 heart block. He spent quite a bit of time talking with the patient and his recommended permanent pacemaker implantation at this time. Dr. Kirby also reviewed a stress test the patient had done here in September this was an exercise Cardiolite. In reviewing EKGs patient had a long [place] interval at rest. With exercise he developed frequent ventricular bigeminy and advanced to 1 heart block was noted in recovery following the stress test. This is further indication that patient does require permanent pacemaker Objective - Vital Signs Vital signs: Vital Signs Temp 97.0 F L 11/10/16 04:00 Pulse 55 L 11/10/16 04:00 Resp 16 11/10/16 04:00 BP 128/60 11/10/16 04:00 Pulse Ox 93 L 11/10/16 08:43 Intake & Output 11/09/16 11/10/16 11/10/16 18:59 06:59 18:59 Intake Total 420 1312 780 Balance 420 1312 780 Intake: IV 1312 Sodium Chloride 0.9% 1, 1312 000 ml @ 75 mls/hr IV . [id number] ONE Rx#:[id number] Intake, IV Titration 600 Amount Sodium Chloride 0.9% 1, 600 000 ml @ 75 mls/hr IV . [id number] ONE Rx#:[id number] Oral 420 180 Other: Voiding Method Toilet # Voids 1 1 - Exam PHYSICAL EXAMINATION: HEENT: Head is atraumatic, normocephalic. Pupils equal, round. Neck is supple. There is no elevated jugular venous pressure. HEART EXAMINATION: Heart sounds regular, S1 and S2 normal. No murmur or gallop heard. CHEST EXAMINATION: Lungs are clear to auscultation and precussion. No chest wall tenderness is noted on palpation or with deep breathing. ABDOMEN: Soft, nontender. Bowel sounds are heard. No organomegaly noted. EXTREMITIES: 2+ peripheral pulses with no evidence of peripheral edema and no calf tenderness noted. NEUROLOGIC patient is awake, alert and oriented x3. . - Labs CBC & Chem 7: 11/10/16 05:51 11/10/16 05:51 Labs: Abnormal Lab Results - Last 24 Hours (Table) 11/10/16 11/10/16 Range/Units 05:51 05:51 RBC 3.71 L (4.30-5.90) m/uL Hgb 11.8 L (13.0-17.5) gm/dL Hct 36.6 L (39.0-53.0) % Chloride 110 H (98-107) mmol/L Creatinine 1.30 H (0.66-1.25) mg/dL Total Protein 5.2 L (6.3-8.2) g/dL Albumin 2.8 L (3.5-5.0) g/dL Assessment and Plan Plan: Assessment and plan #1 symptoms of dizziness, lightheadedness and near syncope, evidence of 2-1 heart block with advanced heart block post exercise following stress test in September #2 history of CAD with prior coronary artery bypass grafting #3 hypertension #4 hyperlipidemia 5 history of prostate CA with prior prostate removal #6 type 2 diabetes From interior wall assembler perspective, echocardiogram was reviewed and showed a normal ejection fraction. Patient is not on any rate lowering medications. EKGs and rhythm strips were reviewed by Dr. Kirby. Patient will undergo permanent pacemaker implantation this evening by Dr. Kirby. ONCOLOGY REGISTRAR note has been reviewed, I agree with a documented findings and plan of care. Patient was seen and examined.
[2016-11-10 14:19] VITALS: RESP 18
--- NOTE | 2016-11-10 15:17 | US ---
EXAMINATION TYPE: US kidneys/renal and bladder DATE OF EXAM: 11/10/2016 COMPARISON: 10/28/2010. CLINICAL HISTORY: keyshawn. EXAM MEASUREMENTS: Right Kidney: 9.4 x 4.6 x 5.4 cm Left Kidney: 10.1 x 5.1 x 6.4 cm Right Kidney: No hydronephrosis or masses seen Left Kidney: Cystic area visualized mid pole measuring 6.5 x 4.9 x 7.2 cm . This appears simple. Thi s previously measured 5.5 x 4.9 x 6.7 cm. Bladder: wnl as visualized, not fully distended Bilateral Jets seen: Yes IMPRESSION: 1. Left renal cyst has enlarged from 10/28/2010 comparison study.
[2016-11-10] MEDS: SODIUM CHLORIDE 0.9% 1,000 ML IV SCH ×2 (16:38→19:12)
[2016-11-10 17:01] LABS: Glucose,Whole Blood 97 mg/dL (75-99)
[2016-11-10] MEDS ORDERED: IOHEXOL 350 MG/ML 50ML BOTTLE INJ ONE (18:52)
[2016-11-10] MEDS ORDERED: fentaNYL (PF) 50 MCG/ML 2 ML AMP ONE (19:09)
[2016-11-10] MEDS ORDERED: fentaNYL (PF) 50 MCG/ML 2 ML AMP IV ONE (19:12)
--- NOTE | 2016-11-10 19:20 | P.CRDCN ---
History of Present Illness History of present illness: Electrophysiology consult requested by Dr. Esipnal History of present illness 80-year-old male patient who presented to the hospital after a presyncopal spell. When he came out of the bathroom he was not feeling right, 1 day prior to admission. He proceeded to sit down on the couch but after 10 minutes or so he still does not feel right and became increasingly dizzy and lightheaded and realized that he should not stand up and go upstairs to call his because he would pass out and injured himself. He did not lose consciousness completely but he was clearly presyncopal while sitting and had been doing so for the last 10 minutes. 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 The patient first arrived his twelve-lead ECG showed sinus rhythm with a prolonged NM interval at baseline but evidence of AV node Wenckebach block and frequent PVCs often in a bigeminal pattern Telemetry showed evidence for AV node Wenckebach block There is one telemetry strip that shows 2-1 heart block with heart rates in the mid 30s to low 40s. He underwent an exercise stress test last month. I reviewed all the EKGs. The stress test revealed 1. Frequent PVCs 2. Improvement in AV node function initially during exercise but at peak exercise and in early recovery there was 2-1 heart block 3. The PVC during the recovery period provoked advanced AV block, transient Medications at home include metformin, hydralazine, Diovan, potassium, atorvastatin and aspirin NO KNOWN DRUG ALLERGIES Review of systems: No fever chills or rigors, no cough, phlegm or expectoration , no nausea, vomiting or diarrhea, no hematuria, dysuria, no musculoskeletal complaints, no strokes or seizures, no skin lesions. His main symptoms have been a presyncopal spell that brought him to the hospital Past history includes coronary artery disease, hypertension, coronary artery bypass grafting and history of AV node disease requiring discontinuation of beta blockers 2-D echo shows hyperdynamic LV function ejection fraction 65-70% Labs are reviewed. Hemoglobin is normal, electrolytes are normal, BUN 20 creatinine 1.3 GFR 53 liver functions normal him a TSH normal at 0.9, troponin normal On examination no JVD no carotid bruits, normal heart sounds normal S1 normal S2. 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, 2-1 block , intermittent 2-1 AV block on telemetry, patient presented with presyncopal spell, not on any beta blockers for at least 2-3 months now Known coronary artery disease status post coronary artery bypass grafting and ST depression noted on stress testing, beta blockers indicated Frequent PVCs often in a bigeminal pattern, sometimes provoking transient third- degree heart block due to VA conduction indicative of an unreliable antegrade AV node function Preserved LV systolic function Suggest Dual-chamber pacemaker implantation and reinstitution of beta blockers thereafter Detailed discussion with the patient, his and his primary metal window frame maker Dr. Woody Discussed with Dr. Monk and nurse practitioner Patient is agreeable to proceeding with dual-chamber pacemaker implantation Past Medical History Past Medical History: Atrial Fibrillation, Diabetes Mellitus, Hyperlipidemia, Hypertension History of Any Multi-Drug Resistant Organisms: None Reported Past Surgical History: Coronary Bypass/CABG Additional Past Surgical History / Comment(s): prostate removal Past Anesthesia/Blood Transfusion Reactions: No Reported Reaction Past Psychological History: No Psychological Hx Reported Smoking Status: Never smoker Past Alcohol Use History: None Reported, Occasional Past Drug Use History: None Reported - Past Family History Mother Family Medical History: CVA/TIA Additional Family Medical History / Comment(s): mother had CVA at age 85 Father Family Medical History: Cancer Additional Family Medical History / Comment(s): from throat cancer Brother(s) Family Medical History: Cancer Additional Family Medical History / Comment(s): from lung cancer Medications and Allergies Home Medications Medication Instructions Recorded Confirmed Type Aspirin 81 mg PO HS 11/08/16 11/08/16 History Atorvastatin Calcium [Lipitor] 80 mg PO HS 11/08/16 11/08/16 History Multivitamins, Thera [Multivitamin 1 tab PO DAILY 11/08/16 11/08/16 History (formulary)] Nitroglycerin Sl Tabs [Nitrostat] 0.4 mg SUBLINGUAL Q5M PRN 11/08/16 11/08/16 History Potassium Chloride [Klor-Con 10] 10 meq PO DAILY@1200 11/08/16 11/08/16 History Valsartan [Diovan] 320 mg PO HS 11/08/16 11/08/16 History hydrALAZINE HCL [Hydralazine HCl] 100 mg PO TID 11/08/16 11/08/16 History metFORMIN HCL [Glucophage] 500 mg PO AC-BID 11/08/16 11/08/16 History Allergies Allergy/AdvReac Type Severity Reaction Status Date / Time No Known Allergies Allergy Verified 11/08/16 23:39 Physical Exam Vitals: Vital Signs Temp Pulse Resp BP Pulse Ox 11/10/16 12:10 97.1 F L 18 135/68 97 11/10/16 08:43 93 L 11/10/16 08:15 97.0 F L 51 L 18 147/75 96 11/10/16 04:00 97.0 F L 55 L 16 128/60 93 L 11/10/16 00:00 97.3 F L 68 16 127/72 100 11/09/16 20:00 97.1 F L 77 18 131/68 95 Intake and Output 11/10/16 11/10/16 11/10/16 06:59 14:59 22:59 Intake Total 780 Balance 780 Intake: Intake, IV Titration 600 Amount Sodium Chloride 0.9% 1, 600 000 ml @ 75 mls/hr IV . [id number] ONE Rx#:[id number] Oral 180 Other: Voiding Method Toilet # Voids 1 2 Results 11/10/16 05:51 11/10/16 05:51 Cardiac Enzymes 11/10/16 Range/Units 05:51 AST 22 (17-59) U/L CBC 11/10/16 Range/Units 05:51 WBC 5.6 (3.8-10.6) k/uL RBC 3.71 L (4.30-5.90) m/uL Hgb 11.8 L (13.0-17.5) gm/dL Hct 36.6 L (39.0-53.0) % Plt Count 219 (150-450) k/uL Comprehensive Metabolic Panel 11/10/16 Range/Units 05:51 Sodium 140 (137-145) mmol/L Potassium 4.1 (3.5-5.1) mmol/L Chloride 110 H (98-107) mmol/L Carbon Dioxide 22 (22-30) mmol/L BUN 20 (9-20) mg/dL Creatinine 1.30 H (0.66-1.25) mg/dL Glucose 87 (74-99) mg/dL Calcium 8.7 (8.4-10.2) mg/dL AST 22 (17-59) U/L ALT 34 (21-72) U/L Alkaline Phosphatase 61 (38-126) U/L Total Protein 5.2 L (6.3-8.2) g/dL Albumin 2.8 L (3.5-5.0) g/dL Current Medications Generic Name Dose Route Start Last Admin Trade Name Freq PRN Reason Stop Dose Admin Aspirin 81 mg 11/09/16 09:00 11/10/16 08:20 Aspirin PO 81 mg DAILY LLOYD Administration Atorvastatin Calcium 80 mg 11/08/16 21:00 11/09/16 20:55 Lipitor PO 80 mg HS LLOYD Administration Famotidine 20 mg 11/11/16 09:00 Pepcid PO DAILY LLOYD Heparin Sodium (Porcine) 5,000 unit 11/09/16 16:00 11/10/16 08:19 Heparin SQ 5,000 unit Q8HR LLOYD Administration Hydralazine HCl 100 mg 11/08/16 23:30 11/10/16 16:39 Apresoline PO 100 mg TID LLOYD Administration Sodium Chloride 1,000 mls @ 20 mls/hr 11/10/16 13:15 11/10/16 19:12 Saline 0.9% IV 0 mls .Q24H LLOYD Administration Cefazolin Sodium 2 gm/ Sodium 100 mls @ 100 mls/hr 11/10/16 19:00 Chloride IVPB 11/10/16 19:59 ONCE ONE Cefazolin Sodium 1,000 mg/ 250 mls @ 500 mls/hr 11/10/16 19:00 Sodium Chloride IRRIGATION 11/10/16 19:29 ONCE ONE Metformin HCl 500 mg 11/09/16 07:30 11/10/16 06:58 Glucophage PO 500 mg BID-W/MEALS LLOYD Administration Multivitamins 1 each 11/09/16 12:00 11/10/16 12:11 Theragran PO 1 each DAILY@1200 LLOYD Administration Nitroglycerin 0.4 mg 11/08/16 21:22 Nitrostat SUBLINGUAL Q5M PRN Chest Pain Potassium Chloride 10 meq 11/09/16 09:00 11/10/16 08:20 K-Dur 10 PO 10 meq DAILY LLOYD Administration Valsartan 320 mg 11/09/16 21:00 11/09/16 20:56 Diovan PO 320 mg HS LLOYD Administration Intake and Output 11/10/16 11/10/16 11/10/16 06:59 14:59 22:59 Intake Total 780 Balance 780 Intake: Intake, IV Titration 600 Amount Sodium Chloride 0.9% 1, 600 000 ml @ 75 mls/hr IV . [id number] ONE Rx#:[id number] Oral 180 Other: Voiding Method Toilet # Voids 1 2 11/10/16 05:51 11/10/16 05:51
[2016-11-10] MEDS ORDERED: MIDAZOLAM 2 MG/2 ML VIAL ONE (19:26)
[2016-11-10] MEDS ORDERED: MIDAZOLAM 2 MG/2 ML VIAL IV ONE (19:28)
[2016-11-10] MEDS ORDERED: LIDOCAINE 1% INJ 10MG/ML (20 ML MDV) SQ ONE (19:30)
--- NOTE | 2016-11-10 20:31 | P.PCN ---
Preoperative Diagnosis: Patient underwent EP procedure under conscious sedation/moderate sedation, monitoring of the level of consciousness and physiologic parameters including but not limited to vital signs and oxygenation. Patient tolerated the procedure well without any acute complications. Start time: 1927 Stop time: 2029 Anesthesia: local, other Condition: stable Disposition: floor
[2016-11-10] MEDS ORDERED: HYDROcodone/APAP 5-325MG 1 EACH TAB PO PRN (20:32)
[2016-11-10] MEDS ORDERED: ACETAMINOPHEN IV (For NPO) 1,000 MG in EMPTY BAG 1 BAG IVPB ONE (20:32)
[2016-11-10] MEDS ORDERED: ACETAMINOPHEN TAB 325 MG TAB PO PRN (20:32)
[2016-11-10] MEDS ORDERED: ceFAZolin 2 GM in SODIUM CHLORIDE 0.9% 100 ML IVPB SCH (20:45)
--- NOTE | 2016-11-10 21:01 | CE ---
CARDIAC ELECTROPHYSIOLOGY REPORT Mr. Lainez is an 80-year-old male patient who presented with an episode of presyncope while sitting on his couch. He had evidence of advanced AV node disease and a baseline prolonged GA interval, AV node Wenckebach block, intermittent 2:1 heart block and exercise-induced 2:1 heart block and transient 3rd-degree AV block induced by PVC. He underwent a dual-chamber pacemaker implantation for symptomatic bradycardia secondary to advanced AV node disease without any reversible causes. His beta-blockers had been discontinued several months back by his primary sql data architect, Dr. Adame. The patient was brought to the EP lab in a fasting state. Written informed consent was obtained prior to the procedure. The left shoulder area was prepped and draped as per protocol. 1% lidocaine used for local anesthesia. A 4-cm incision was made parallel to the deltopectoral groove, about 1.5 cm medial to it. The incision was carried down to the level of the pectoralis muscle. A subfascial pocket was made. Hemostasis was assured. The left axillary vein was accessed at 2 separate points under fluoroscopy and via appropriately-sized introducer sheaths, 2 leads were positioned in the right heart. The atrial lead was a [employer] 45 cm Ingevity MRI, model #7740, serial #[id number]. This was screwed in the right atrial appendage stump. P waves 5.9 mV, pacing threshold 0.5 V at 0.5 msec, pacing impedance of 640. His 10 V test was negative. The RV lead was an Ingevity MRI, model #7742, serial #[id number], R-wave 17 mV, pacing threshold 0.3 V at 0.5 msec, pacing impedance of 952 ohms, 10 V test was negative. Both leads were secured to the underlying pectoralis fascia using 2 nonabsorbable sutures. The pocket was irrigated with antibiotic solution. Leads were connected to the generator in ([employer]) MRI dual-chamber device, model #L111, serial #[id number]. The leads and generator were then placed in the subfascial pocket, where the wound was closed in 3 layers after securing the generator to the pectoralis muscle. The device is programmed to DDDR mode at 50 to 120 ppm with a sensed AV delay of 200- 300 msec with AV search on up to 400 msec. PLAN: Restart beta blockers, Coreg 6.25 mg twice daily. Management of hypertension and maximize beta blockers. Patient had an abnormal stress test with ST depression and frequent PVCs on stress testing. MMODL / IJN: [id number] /
[2016-11-10 21:44] LABS: Glucose,Whole Blood 94 mg/dL (75-99)
[2016-11-10] MEDS: ATORVASTATIN 80 MG TAB PO SCH (22:44)
[2016-11-10] MEDS: CARVEDILOL 6.25 MG TAB PO SCH (22:44)
[2016-11-10] MEDS: VALSARTAN 160 MG TAB PO SCH (22:44)
[2016-11-11] MEDS: ceFAZolin 2 GM in SODIUM CHLORIDE 0.9% 100 ML IVPB SCH ×4 (02:06→19:00)
[2016-11-11 05:45] LABS: Glucose,Whole Blood 100 mg/dL (75-99)
[2016-11-11] MEDS: metFORMIN 500 MG TAB PO SCH ×2 (06:50→16:50)
[2016-11-11] MEDS: CARVEDILOL 6.25 MG TAB PO SCH ×2 (06:51→16:49)
[2016-11-11 07:08] LABS: Basophils % (A) 1 %; CH 32.7; CHCM 33.4; Eosinophils # (A) 0.2 k/uL (0-0.7); Eosinophils % (A) 4 %; HCT 37.2 % (39.0-53.0); HGB 11.9 gm/dL (13.0-17.5); Luc # (Auto) 0.08; Luc % (Auto) 1; Lymphocytes % (A) 18 %; MCH 31.5 pg (25.0-35.0); MCV 98.4 fL (80.0-100.0); Mean Platelet Volume 8.3; Monocytes # (A) 0.4 k/uL (0-1.0); Monocytes % (A) 7 %; Neutrophils # (A) 4.1 k/uL (1.3-7.7); Neutrophils % (A) 70 %; RBC 3.78 m/uL (4.30-5.90); RDW 13.6 % (11.5-15.5); WBC 5.8 k/uL (3.8-10.6); WBC (Perox) 6.27
[2016-11-11 07:17] LABS: ALT 29 U/L (21-72); AST 21 U/L (17-59); Alkaline Phosphatase 65 U/L (38-126); Anion Gap 9 mmol/L; Blood Urea Nitrogen 16 mg/dL (9-20); Calcium 8.6 mg/dL (8.4-10.2); Carbon Dioxide 22 mmol/L (22-30); Chloride 111 mmol/L (98-107); Glucose 90 mg/dL (74-99); Non-African American GFR(MDRD) 56 (>60 ml/min/1.73 sqM); Potassium 3.7 mmol/L (3.5-5.1); Sodium 142 mmol/L (137-145); Total Bilirubin 0.5 mg/dL (0.2-1.3); Total Protein 5.6 g/dL (6.3-8.2)
--- NOTE | 2016-11-11 07:52 | XR ---
EXAMINATION TYPE: XR chest 2V DATE OF EXAM: 11/11/2016 HISTORY: Lead placement check. REFERENCE: Previous study dated 11/08/2016. FINDINGS: There has been a midline sternotomy. There has been interval placement of a bipolar pacemaker via a left subclavian approach. Approximatel y overlies the right atrium and the distal lead overlies the right ventricle. Heart size upper limits of normal. The lungs are clear. Pleural spaces are clear. I do not see eviden ce of pneumothorax. IMPRESSION: 1. STATUS POST PACEMAKER INSERTION. 2. BORDERLINE CARDIOMEGALY.
[2016-11-11] MEDS: POTASSIUM CHLORIDE ER 10 MEQ TAB.ER.PRT PO SCH (08:07)
[2016-11-11] MEDS: MULTIVITAMINS, THERA 1 EACH TAB PO SCH (08:07)
[2016-11-11] MEDS: ASPIRIN 81 MG PO SCH (08:07)
[2016-11-11] MEDS: HEPARIN SODIUM,PORCINE 5,000 UNIT/ML 1 ML VIAL SQ SCH ×2 (08:07→16:49)
[2016-11-11] MEDS: hydrALAZINE HCL 50 MG TAB PO SCH ×3 (08:08→20:51)
[2016-11-11] MEDS ORDERED: FAMOTIDINE 20 MG TAB PO SCH (09:00)
[2016-11-11 12:07] LABS: Glucose,Whole Blood 103 mg/dL (75-99)
--- NOTE | 2016-11-11 12:42 | P.PN ---
Subjective Principal diagnosis: near syncope This is a pleasant 80-year-old gentleman with a known history of coronary artery disease, prior coronary artery bypass grafting, hypertension, diabetes mellitus type 2, hyperlipidemia, follows with Dr. Woody. End of the patient, EKG was done and Dr. Woody's office and his beta bryon was discontinued back in July. He presents to the hospital this admission due to complaints of not feeling well, weakness in his arms, lightheadedness and feeling as if he may pass out. This occurred while sitting on the couch after a shower, did not improve after sitting for at least 10 minutes. Patient was noted to have secondary type I heart block on an EKG which was reviewed by Dr. Kirby, at that time it was felt the patient did not require permanent pacemaker. Dr. Kirby and was in to see the patient today, reviewed rhythm strips that showed 2:1 heart block. He spent quite a bit of time talking with the patient and his recommended permanent pacemaker implantation at this time. Dr. Kirby also reviewed a stress test the patient had done here in September this was an exercise Cardiolite. In reviewing EKGs patient had a long TX interval at rest. With exercise he developed frequent ventricular bigeminy and advanced 2: 1 heart block was noted in recovery following the stress test. He underwent dual-chamber pacemaker implantation by Dr. Kirby yesterday. Interrogation this morning shows normal function with normal device measurements. Upon examination, the patient is resting completely embedded with his at the bedside. He is feeling well this morning denies significant discomfort at his incision. Denies complaints of dizziness, lightheadedness, shortness of breath or chest discomfort. Objective - Vital Signs Vital signs: Vital Signs Temp 97.8 F 11/11/16 08:00 Pulse 65 11/11/16 12:00 Resp 18 11/11/16 12:00 BP 152/72 11/11/16 12:00 Pulse Ox 94 L 11/10/16 21:47 Intake & Output 11/10/16 11/11/16 11/11/16 18:59 06:59 18:59 Intake Total 780 800 180 Output Total 1075 Balance 780 -275 180 Weight 75.4 kg Intake: IV 700 Sodium Chloride 0.9% 1, 600 000 ml @ 75 mls/hr IV . [id number] ONE Rx#:[id number] Intake, IV Titration 600 100 Amount Sodium Chloride 0.9% 1, 600 000 ml @ 75 mls/hr IV . [id number] ONE Rx#:[id number] ceFAZolin 2 gm In Sodium 100 Chloride 0.9% 100 ml @ 100 mls/hr IVPB Q6H [facility] Rx#:[id number] Oral 180 180 Output: Urine 1075 Other: Voiding Method Urinal Urinal # Voids 2 - Exam PHYSICAL EXAMINATION: HEENT: Head is atraumatic, normocephalic. Pupils equal, round. Neck is supple. There is no elevated jugular venous pressure. HEART EXAMINATION: Heart sounds regular, S1 and S2 normal. No murmur or gallop heard. CHEST EXAMINATION: Lungs are clear to auscultation and precussion. No chest wall tenderness is noted on palpation or with deep breathing. LIC site with dressing dry and intact, scant serosanguineous drainage noted, no ecchymosis or hematoma around the site. ABDOMEN: Soft, nontender. Bowel sounds are heard. No organomegaly noted. EXTREMITIES: 2+ peripheral pulses with no evidence of peripheral edema and no calf tenderness noted. NEUROLOGIC patient is awake, alert and oriented x3. . - Labs CBC & Chem 7: 11/11/16 06:42 11/11/16 06:42 Labs: Abnormal Lab Results - Last 24 Hours (Table) 11/11/16 11/11/16 11/11/16 Range/Units 05:42 06:42 06:42 RBC 3.78 L (4.30-5.90) m/uL Hgb 11.9 L (13.0-17.5) gm/dL Hct 37.2 L (39.0-53.0) % Chloride 111 H (98-107) mmol/L POC Glucose (mg/dL) 100 H (75-99) mg/dL Total Protein 5.6 L (6.3-8.2) g/dL Albumin 3.0 L (3.5-5.0) g/dL 11/11/16 Range/Units 11:54 RBC (4.30-5.90) m/uL Hgb (13.0-17.5) gm/dL Hct (39.0-53.0) % Chloride (98-107) mmol/L POC Glucose (mg/dL) 103 H (75-99) mg/dL Total Protein (6.3-8.2) g/dL Albumin (3.5-5.0) g/dL Assessment and Plan Plan: Assessment and plan #1 symptoms of dizziness, lightheadedness and near syncope, evidence of 2-1 heart block with advanced heart block post exercise following stress test in September #2 history of CAD with prior coronary artery bypass grafting #3 hypertension #4 hyperlipidemia 5 history of prostate CA with prior prostate removal #6 type 2 diabetes #7 status post permanent pacemaker implantation From router operator perspective, the patient may be discharged home today. He does follow with Dr. Woody however would like to follow in our device clinic at [facility]. He will need an appointment to be seen in one week by either Sarah or Cathy. AIRCRAFT ELECTRONICS TECHNICAL OFFICER note has been reviewed, I agree with a documented findings and plan of care. Patient was seen and examined.
[2016-11-11 16:52] LABS: Glucose,Whole Blood 98 mg/dL (75-99)
[2016-11-11 18:14] VITALS: BP 168/88; PULSE 67; TEMP 97.5
[2016-11-11 20:50] LABS: Glucose,Whole Blood 96 mg/dL (75-99)
[2016-11-11] MEDS: ATORVASTATIN 80 MG TAB PO SCH (20:51)
[2016-11-11] MEDS: VALSARTAN 160 MG TAB PO SCH (20:51)
--- NOTE | 2016-11-11 23:14 | PN ---
PROGRESS NOTE Patient is seen for followup for acute kidney injury. His renal function has improved significantly with creatinine down to 1.25 from 1.58. The patient is currently not on any IV fluids. He feels well. EXAMINATION: Blood pressure is 168/88, heart rate 65 per minute. He is afebrile. HEART: S1, S2. LUNGS: Bilateral breath sounds are heard. Decreased breath sounds at bases. ABDOMEN: Soft, nontender. Lower extremities show no evidence of edema. CORE LAYING MACHINE OPERATOR: Grossly intact. LABS: Show serum creatinine down to 1.25, sodium 142, potassium 3.7. Hemoglobin 11.9. UA is completely benign. ASSESSMENT: 1. Acute kidney injury, possibly prerenal, currently improved, status post IV fluids. The patient remains on the Diovan, which we can continue for now. His renal function has improved significantly. Blood pressure has been elevated occasionally. No episodes of hypotension. 2. Rule out chronic kidney disease. Previous creatinine not available for comparison. 3. Second-degree heart block, status post pacemaker placement. 4. Type 2 diabetes. PLAN: Continue current medications. No changes from Nephrology standpoint. MMODL / IJN: [id number] /
--- NOTE | 2016-11-12 12:49 | P.DS ---
Providers Date of admission: 11/08/16 16:18 Expected date of discharge: 11/11/16 Attending physician: Zaid Lovett Consults: 11/08/16 16:18 Consult Physician Urgent Consulting Provider: [facility] Consult Reason/Comments: Second-degree AV block, dizziness Do you want consulting provider notified?: Yes 11/09/16 13:37 Consult Physician Routine Consulting Provider: Winsome Cifuentes Consult Reason/Comments: XIAO Do you want consulting provider notified?: Yes Primary care physician: [facility] Course: 80-year-old male who presents to the emergency room on 11/08/2016 with chief complaint of dizziness. Patient was found to be in second-degree type I heart block. Echocardiogram was completed yesterday which showed an EF of 65 and 70% . TSH was within normal range. The patient denies dizziness or lightheadedness this morning. He denies chest pain or shortness of breath. His vital signs of an stable. He's been afebrile. His oxygen saturations remain greater than 92% on room air. Cardiology on consult. Patient may need permanent pacemaker insertion. Cardiology w/u confirmed pacer necssity and it was placed early day of D/C. Pt remained stable and was sent home Final diagnosis Second-degree type I heart block, present on admission -Dizziness, present on admission, secondary to second-degree type I heart block -Coronary artery disease with prior CABG -Acute kidney injury, suspected, Cr. 1.58 on admission, no baseline available, resolving -Essential hypertension -Diabetes mellitus, type II Pacer placement Plan - Discharge Summary New Discharge Prescriptions: No Action metFORMIN HCL [Glucophage] 500 mg PO AC-BID Atorvastatin Calcium [Lipitor] 80 mg PO HS Valsartan [Diovan] 320 mg PO HS Potassium Chloride [Klor-Con 10] 10 meq PO DAILY@1200 Aspirin 81 mg PO HS hydrALAZINE HCL [Hydralazine HCl] 100 mg PO TID Nitroglycerin Sl Tabs [Nitrostat] 0.4 mg SUBLINGUAL Q5M PRN PRN Reason: Angina Multivitamins, Thera [Multivitamin (formulary)] 1 tab PO DAILY Discharge Medication List Aspirin 81 mg PO HS 11/08/16 [History] Atorvastatin Calcium [Lipitor] 80 mg PO HS 11/08/16 [History] Multivitamins, Thera [Multivitamin (formulary)] 1 tab PO DAILY 11/08/16 [History ] Nitroglycerin Sl Tabs [Nitrostat] 0.4 mg SUBLINGUAL Q5M PRN 11/08/16 [History] Potassium Chloride [Klor-Con 10] 10 meq PO DAILY@1200 11/08/16 [History] Valsartan [Diovan] 320 mg PO HS 11/08/16 [History] hydrALAZINE HCL [Hydralazine HCl] 100 mg PO TID 11/08/16 [History] metFORMIN HCL [Glucophage] 500 mg PO AC-BID 11/08/16 [History] Follow up Appointment(s)/Referral(s): Kenny Kirby MD [STAFF PHYSICIAN] - 1 Week (please call office during normal business hours to schedule follow-up appointment and device interrogation.) Tato Bell Jr, DO [Primary Care Provider] - 3 Days (please call office during normal business hours to schedule follow-up appointment) Patient Instructions/Handouts: Pacemaker (DC) Discharge Disposition: HOME SELF-CARE
== END 2016-11-11 21:35 | disposition home or self-care (01) | DRG 243 ==
LOC: EC 13:59 → 6SEL 16:18
PROVIDERS: ADMIT Family Medicine; ATTEND Family Medicine
PROC: 0JH606Z Insertion of Pacemaker, Dual Chamber into Chest Subcutaneous Tissue and Fascia, Open Approach (ICD-10-PCS; principal; 2016-11-08)
PROC: 02H63JZ Insertion of Pacemaker Lead into Right Atrium, Percutaneous Approach (ICD-10-PCS; 2016-11-08)
PROC: 02HK3JZ Insertion of Pacemaker Lead into Right Ventricle, Percutaneous Approach (ICD-10-PCS; 2016-11-08)
DX: I44.1 Atrioventricular block, second degree (principal); N17.9 Acute kidney failure, unspecified; Z95.1 Presence of aortocoronary bypass graft; E11.9 Type 2 diabetes mellitus without complications; R00.1 Bradycardia, unspecified; I48.91 Unspecified atrial fibrillation; I25.10 Atherosclerotic heart disease of native coronary artery without angina pectoris; E78.5 Hyperlipidemia, unspecified; I10 Essential (primary) hypertension; Z79.82 Long term (current) use of aspirin; Z79.84 Long term (current) use of oral hypoglycemic drugs; Z79.899 Other long term (current) drug therapy; Z85.46 Personal history of malignant neoplasm of prostate; Z90.79 Acquired absence of other genital organ(s)
CPT/HCPCS: 33208; 36415; 71020; 76770; 80053; 81003; 82550; 82553; 84443; 84484; 85025; 85610; 85730; 93005; 93306; 94760; 96360; 96361; 99285

== ENCOUNTER 2018-09-19 10:13 | Inpatient (IN) | payer MEDICARE, OTHER ==
[2018-09-19] MEDS ORDERED: MORPHINE SULFATE 2 MG/ML SYRINGE IVP STA ×2 (11:16→13:46)
[2018-09-19] MEDS ORDERED: SODIUM CHLORIDE 0.9% 500 ML 500 ML IV STA (11:16)
[2018-09-19] MEDS ORDERED: ONDANSETRON 4 MG/2 ML VIAL IVP STA (11:52)
[2018-09-19 12:02] LABS: Basophils % (A) 0 %; Eosinophils # (A) 0.2 k/uL (0-0.7); Eosinophils % (A) 2 %; HCT 39.6 % (39.0-53.0); HGB 12.8 gm/dL (13.0-17.5); Lymphocytes # (A) 1.5 k/uL (1.0-4.8); Lymphocytes % (A) 12 %; MCH 31.6 pg (25.0-35.0); MCHC 32.3 g/dL (31.0-37.0); MCV 97.9 fL (80.0-100.0); Mean Platelet Volume 7.5; Monocytes # (A) 0.5 k/uL (0-1.0); Monocytes % (A) 4 %; Neutrophils # (A) 10.3 k/uL (1.3-7.7); Neutrophils % (A) 81 %; Platelet Count 314 k/uL (150-450); RBC 4.04 m/uL (4.30-5.90); RDW 13.8 % (11.5-15.5); WBC 12.7 k/uL (3.8-10.6)
[2018-09-19 12:19] LABS: Calcium 9.3 mg/dL (8.4-10.2); Magnesium 1.8 mg/dL (1.6-2.3); Total Bilirubin 0.8 mg/dL (0.2-1.3); Total Protein 6.7 g/dL (6.3-8.2)
[2018-09-19 12:22] LABS: Appearance,Urine Clear (Clear); Bilirubin,Urine Negative (Negative); Blood,Urine Negative (Negative); Color,Urine Yellow; Glucose,Urine (UA) Negative (Negative); Ketones,Urine Negative (Negative); Leukocyte Esterase,Urine Negative (Negative); Nitrite,Urine Negative (Negative); Potassium 5.2 mmol/L (3.5-5.1); Protein,Urine Negative (Negative); Specific Gravity,Urine 1.011 (1.001-1.035); Urobilinogen,Urine <2.0 mg/dL (<2.0)
[2018-09-19 12:25] LABS: INR 0.9 (<1.2); Partial Thromboplastin Time 23.9 sec (22.0-30.0)
[2018-09-19 12:39] LABS: Creatine Kinase MB 0.4 ng/mL (0.0-2.4); Troponin I 0.013 ng/mL (0.000-0.034)
--- NOTE | 2018-09-19 13:34 | CT ---
EXAMINATION TYPE: CT abdomen pelvis w con DATE OF EXAM: 09/19/2018 COMPARISON: abdominal pain HISTORY: Generalized abdominal pain CT DLP: 811.7 mGycm Automated exposure control for dose reduction was used. CONTRAST: CT scan of the abdomen pelvis is performed with IV Contrast, patient injected with 80 mL of Isovue 30 0. FINDINGS- LUNG BASES-cardiac leads are noted. Sternotomy wires are seen. Interlobular septal thickening suggest maría of chronic interstitial lung disease.. Small cardiophrenic angle lymph node is seen anterior to t he cardiac border on the left. LIVER/GB- No gross abnormality is appreciated. PANCREAS-the cystic lesion near the pancreatic head which appears somewhat atrophic measuring 1.8 cm and 7 Hounsfield units.. Additional 8 mm hypodense lesion in the region of the pancreatic body on huong ge 25 SPLEEN- No gross abnormality is seen. ADRENALS- No gross abnormality is seen. KIDNEYS/BLADDER- no hydronephrosis or nephrolithiasis. Simple appearing left renal cyst noted. BOWEL-there are multiple dilated small bowel loops in a pattern suggestive of partial obstruction. Ap pendix not seen. No free air. Small hiatal hernia noted. LYMPH NODES- No greater than 1cm abdominal or pelvic lymph nodes areappreciated. OSSEOUS STRUCTURES-hypertrophic and degenerative change of the spine.. OTHER- atherosclerotic change aorta. There is no evidence of aneurysm. Ectasia of the iliac arteries noted. IMPRESSION- 1. Multiple dilated small bowel loops in a pattern suspicious for obstruction. 2. There multiple pancreatic lesions as discussed above. May represent pancreatic cyst or cystic neop lasm. Recommend follow-up MRI. 3. Cardiomegaly
[2018-09-19] MEDS ORDERED: MORPHINE SULFATE 4 MG/ML SYRINGE IVP STA (13:44)
[2018-09-19] MEDS ORDERED: SODIUM CHLORIDE 0.9% 1,000 ML IV STA (13:55)
--- NOTE | 2018-09-19 15:01 | ED ---
General Adult HPI <Ayo Contreras - Last Filed: 09/19/18 15:31> - General Source: patient, RN notes reviewed Mode of arrival: ambulatory Limitations: no limitations <Gold Escobar - Last Filed: 09/19/18 15:42> - General Chief complaint: Abdominal Pain Stated complaint: Abd pain Time Seen by Provider: 09/19/18 10:46 - History of Present Illness Initial comments: Rico is an 82-year-old male with a past medical history atrial fibrillation, diabetes mellitus, hyperlipidemia, hypertension, pacemaker who presents to the emergency department for a chief complaint of abdominal pain. Patient states the pain is in his abdomen and radiates to his back. States it is about his mid abdomen and is very sharp in nature. Currently rates the pain at an 8 out of 10. States he is very nauseous and has vomited. States this feels like her previous bowel obstruction. States this happened about 2 years ago at a [place] facility but he has not followed up in this area with a general surgeon or GI specialists. I fevers or chills. Denies chest pain or shortness of breath. Patient has no other complaints at this time including shortness of breath, chest pain, headache, or visual changes. (Gold Escobar) - Related Data Home Medications Medication Instructions Recorded Confirmed Atorvastatin Calcium [Lipitor] 80 mg PO HS 11/08/16 09/19/18 Multivitamins, Thera [Multivitamin 1 tab PO DAILY 11/08/16 09/19/18 (formulary)] Nitroglycerin Sl Tabs [Nitrostat] 0.4 mg SUBLINGUAL Q5M PRN 11/08/16 09/19/18 Potassium Chloride [Klor-Con 10] 10 meq PO DAILY@1200 11/08/16 09/19/18 hydrALAZINE HCL [Hydralazine HCl] 100 mg PO TID 11/08/16 09/19/18 metFORMIN HCL [Glucophage] 500 mg PO AC-BID 11/08/16 09/19/18 Apixaban [Eliquis] 5 mg PO BID 09/19/18 09/19/18 Hydrochlorothiazide [Hydrodiuril] 50 mg PO DAILY 09/19/18 09/19/18 Losartan Potassium 50 mg PO BID 09/19/18 09/19/18 Metoprolol Succinate (ER) [Toprol 25 mg PO DAILY 09/19/18 09/19/18 Xl] Sotalol [Betapace] 120 mg PO BID@1200,2100 09/19/18 09/19/18 Travoprost [Travatan Z 0.004%] 1 drop BOTH EYES HS 09/19/18 09/19/18 Allergies Allergy/AdvReac Type Severity Reaction Status Date / Time No Known Allergies Allergy Verified 09/19/18 10:54 Review of Systems ROS Other: All systems not noted in ROS Statement are negative. <Ayo Contreras - Last Filed: 09/19/18 15:31> ROS Other: All systems not noted in ROS Statement are negative. <Gold Escobar - Last Filed: 09/19/18 15:42> ROS Statement: Those systems with pertinent positive or pertinent negative responses have been documented in the HPI. Past Medical History Past Medical History: Atrial Fibrillation, Diabetes Mellitus, Hyperlipidemia, Hypertension History of Any Multi-Drug Resistant Organisms: None Reported Past Surgical History: Coronary Bypass/CABG Additional Past Surgical History / Comment(s): prostate removal Past Anesthesia/Blood Transfusion Reactions: No Reported Reaction Past Psychological History: No Psychological Hx Reported Smoking Status: Never smoker Past Alcohol Use History: None Reported, Occasional Past Drug Use History: None Reported - Past Family History Mother Family Medical History: CVA/TIA Additional Family Medical History / Comment(s): mother had CVA at age 85 Father Family Medical History: Cancer Additional Family Medical History / Comment(s): from throat cancer Brother(s) Family Medical History: Cancer Additional Family Medical History / Comment(s): from lung cancer <Gold Escobar P - Last Filed: 09/19/18 15:42> General Exam Limitations: no limitations General appearance: alert, in no apparent distress Head exam: Present: atraumatic, normocephalic, normal inspection Eye exam: Present: normal appearance, PERRL, EOMI. Absent: scleral icterus, conjunctival injection, periorbital swelling ENT exam: Present: normal exam, mucous membranes moist Neck exam: Present: normal inspection, full ROM. Absent: tenderness, meningismus, lymphadenopathy Respiratory exam: Present: normal lung sounds bilaterally. Absent: respiratory distress, wheezes, rales, rhonchi, stridor Cardiovascular Exam: Present: regular rate, normal rhythm, normal heart sounds. Absent: systolic murmur, diastolic murmur, rubs, gallop, clicks GI/Abdominal exam: Present: soft, tenderness (Generalized tenderness noted in the abdomen while regarding). Absent: distended, guarding, rebound, rigid Neurological exam: Present: alert, oriented X3 Psychiatric exam: Present: anxious <Gold Escobar P - Last Filed: 09/19/18 15:42> Course Vital Signs 09/19/18 09/19/18 09/19/18 10:21 11:26 13:14 Temperature 97.7 F Pulse Rate 68 52 L 55 L Respiratory 18 18 18 Rate Blood Pressure 167/77 161/86 167/97 O2 Sat by Pulse 98 99 98 Oximetry 09/19/18 13:52 Temperature Pulse Rate 56 L Respiratory 18 Rate Blood Pressure 153/100 O2 Sat by Pulse 97 Oximetry EKG Findings - EKG Comments: EKG Findings:: paced rhythm, ventricular rate of 53, NM interval 272, QTC 499, compared to previous EKG in 2017 which was also paced <Gold Escobar P - Last Filed: 09/19/18 15:42> Medical Decision Making - Lab Data Result diagrams: 09/19/18 11:45 09/19/18 11:45 <Ayo Contreras - Last Filed: 09/19/18 15:31> - Lab Data Result diagrams: 09/19/18 11:45 09/19/18 11:45 <Gold Escobar - Last Filed: 09/19/18 15:42> - Medical Decision Making Case was discussed with practitioner Gold. Case also discussed in detail with Dr. Lovett, who will admit his patient. Case also discussed with Dr. Peterson, who will consult. Chart Reviewed. Results reviewed. (Ayo Contreras) Rico is an 82-year-old male with a past medical history of atrial fibrillation, diabetes mellitus, hyperlipidemia, hypertension, pacemaker who presents for a chief complaint of abdominal pain. States he has had this type pain before and it was a bowel obstruction 2 years ago. States this was out of [facility] and he does not have a surgeon in this area. Patient is nauseous and has vomited in the emergency department. On exam he does have diffuse abdominal tenderness. CBC shows a mild leukocytosis, could be reactive in nature. CMP shows mild hyperkalemia however was all is hemolyzed. This will be repeated in the morning. Patient does have evidence of dehydration with a BUN to creatinine ratio of 27, patient given IV fluids. CT abdomen and pelvis shows multiple dilated small bowel loops suspicious for obstruction. There are also multiple pancreatic lesions, cyst versus neoplasm. Dr. Contreras discussed this case with Dr. Lovett, he will accept admission. Dr. Vázquez will be put on consult as well as GI. NG tube is placed, placement confirmed with chest x-ray. (Gold Escobar) - Lab Data Lab Results 09/19/18 09/19/18 09/19/18 Range/Units 11:45 11:45 11:45 WBC 12.7 H (3.8-10.6) k/uL RBC 4.04 L (4.30-5.90) m/uL Hgb 12.8 L (13.0-17.5) gm/dL Hct 39.6 (39.0-53.0) % MCV 97.9 (80.0-100.0) fL MCH 31.6 (25.0-35.0) pg MCHC 32.3 (31.0-37.0) g/dL RDW 13.8 (11.5-15.5) % Plt Count 314 (150-450) k/uL Neutrophils % 81 % Lymphocytes % 12 % Monocytes % 4 % Eosinophils % 2 % Basophils % 0 % Neutrophils # 10.3 H (1.3-7.7) k/uL Lymphocytes # 1.5 (1.0-4.8) k/uL Monocytes # 0.5 (0-1.0) k/uL Eosinophils # 0.2 (0-0.7) k/uL Basophils # 0.0 (0-0.2) k/uL PT (9.0-12.0) sec INR (<1.2) APTT (22.0-30.0) sec Sodium 137 (137-145) mmol/L Potassium 5.2 H (3.5-5.1) mmol/L Chloride 104 (98-107) mmol/L Carbon Dioxide 24 (22-30) mmol/L Anion Gap 9 mmol/L BUN 34 H (9-20) mg/dL Creatinine 1.23 (0.66-1.25) mg/dL Est GFR (CKD-EPI)AfAm 63 (>60 ml/min/1.73 sqM) Est GFR (CKD-EPI)NonAf 55 (>60 ml/min/1.73 sqM) Glucose 174 H (74-99) mg/dL Plasma Lactic Acid Jordon (0.7-2.0) mmol/L Calcium 9.3 (8.4-10.2) mg/dL Magnesium 1.8 (1.6-2.3) mg/dL Total Bilirubin 0.8 (0.2-1.3) mg/dL AST 33 (17-59) U/L ALT 20 L (21-72) U/L Alkaline Phosphatase 63 (38-126) U/L CK-MB (CK-2) 0.4 (0.0-2.4) ng/mL Troponin I 0.013 (0.000-0.034) ng/mL Total Protein 6.7 (6.3-8.2) g/dL Albumin 4.0 (3.5-5.0) g/dL Amylase 68 (30-110) U/L Lipase 87 (23-300) U/L Urine Color Urine Appearance (Clear) Urine pH (5.0-8.0) Ur Specific [place] (1.001-1.035) Urine Protein (Negative) Urine Glucose (UA) (Negative) Urine Ketones (Negative) Urine Blood (Negative) Urine Nitrite (Negative) Urine Bilirubin (Negative) Urine Urobilinogen (<2.0) mg/dL Ur Leukocyte Esterase (Negative) 09/19/18 09/19/18 09/19/18 Range/Units 11:45 11:45 11:45 WBC (3.8-10.6) k/uL RBC (4.30-5.90) m/uL Hgb (13.0-17.5) gm/dL Hct (39.0-53.0) % MCV (80.0-100.0) fL MCH (25.0-35.0) pg MCHC (31.0-37.0) g/dL RDW (11.5-15.5) % Plt Count (150-450) k/uL Neutrophils % % Lymphocytes % % Monocytes % % Eosinophils % % Basophils % % Neutrophils # (1.3-7.7) k/uL Lymphocytes # (1.0-4.8) k/uL Monocytes # (0-1.0) k/uL Eosinophils # (0-0.7) k/uL Basophils # (0-0.2) k/uL PT 10.0 (9.0-12.0) sec INR 0.9 (<1.2) APTT 23.9 (22.0-30.0) sec Sodium (137-145) mmol/L Potassium (3.5-5.1) mmol/L Chloride (98-107) mmol/L Carbon Dioxide (22-30) mmol/L Anion Gap mmol/L BUN (9-20) mg/dL Creatinine (0.66-1.25) mg/dL Est GFR (CKD-EPI)AfAm (>60 ml/min/1.73 sqM) Est GFR (CKD-EPI)NonAf (>60 ml/min/1.73 sqM) Glucose (74-99) mg/dL Plasma Lactic Acid Jordon 1.3 (0.7-2.0) mmol/L Calcium (8.4-10.2) mg/dL Magnesium (1.6-2.3) mg/dL Total Bilirubin (0.2-1.3) mg/dL AST (17-59) U/L ALT (21-72) U/L Alkaline Phosphatase (38-126) U/L CK-MB (CK-2) (0.0-2.4) ng/mL Troponin I (0.000-0.034) ng/mL Total Protein (6.3-8.2) g/dL Albumin (3.5-5.0) g/dL Amylase (30-110) U/L Lipase (23-300) U/L Urine Color Yellow Urine Appearance Clear (Clear) Urine pH 7.0 (5.0-8.0) Ur Specific [place] 1.011 (1.001-1.035) Urine Protein Negative (Negative) Urine Glucose (UA) Negative (Negative) Urine Ketones Negative (Negative) Urine Blood Negative (Negative) Urine Nitrite Negative (Negative) Urine Bilirubin Negative (Negative) Urine Urobilinogen <2.0 (<2.0) mg/dL Ur Leukocyte Esterase Negative (Negative) Disposition <Ayo Contreras - Last Filed: 09/19/18 15:31> Is patient prescribed a controlled substance at d/c from ED?: No Time of Disposition: 15:41 <Gold Escobar P - Last Filed: 09/19/18 15:42> Clinical Impression: Partial obstruction of small intestine Disposition: ADMITTED IP TO THIS HOSP Condition: Good Referrals: Zaid Lovett MD [Primary Care Provider] - 1-2 days
--- NOTE | 2018-09-19 15:14 | XR ---
EXAMINATION TYPE: XR chest 1V DATE OF EXAM: 09/19/2018 COMPARISON: 11/11/2016 HISTORY: Nasogastric tube placement. TECHNIQUE: Single frontal view of the chest is obtained. FINDINGS: Multilead left-sided cardiac device is seen with post CABG changes the chest. Enteric tube is appropriately placed with its fenestrated portion beyond the gastroesophageal junction. Patchy ai rspace disease and hypoventilatory lungs are seen. Airspace disease likely represents atelectasis. Ge neralized osseous demineralization is seen with degenerative changes of the spine and glenohumeral cricket ints. IMPRESSION: Appropriately placed enteric tube. New patchy bilateral scattered airspace disease likel y represents atelectasis with hypoventilation of the lungs.
[2018-09-19] MEDS ORDERED: NALOXONE 0.4 MG/ML 1 ML VIAL IV PRN (15:36)
[2018-09-19] MEDS ORDERED: ONDANSETRON 4 MG/2 ML VIAL IVP PRN (15:36)
[2018-09-19] MEDS ORDERED: MORPHINE SULFATE 2 MG/ML SYRINGE IV PRN (15:36)
[2018-09-19] MEDS: SODIUM CHLORIDE 0.9% 1,000 ML IV SCH (15:48)
[2018-09-19 17:03] VITALS: BMI 24.1
[2018-09-19] MEDS: METOPROLOL SUCCINATE (ER) 25 MG TAB.ER.24H PO SCH (17:55)
[2018-09-19] MEDS: hydrALAZINE HCL 50 MG TAB PO SCH ×2 (17:56→21:38)
[2018-09-19] MEDS: APIXABAN 5 MG TAB PO SCH (21:35)
[2018-09-19] MEDS: HYDROmorphone 0.5 MG/0.5 ML SYRINGE IVP PRN (21:35)
[2018-09-19] MEDS: LATANOPROST 0.005% OPHTH DROPS 2.5 ML BTL BOTH EYES SCH (21:36)
--- NOTE | 2018-09-19 23:23 | P.GSCN ---
History of Present Illness Consult date: 09/19/18 History of present illness: He reports passing flatus now. His previous abdominal pain is resolved. Further history obtained from at bedside. He has history of laparoscopic prostatectomy in 2006. He then had his first episode of bowel obstruction 2 years ago in 2017 in [place] treated with antibiotics and fluids for 5 days per his report. He had developed acute crampy abdominal pain after having breakfast cereal this morning that was diffuse. His pain was 10 out of 10. He had 300 mL out of his NG tube. Since then, his abdominal pain has resolved and he is now passing flatus. NG tube discontinued by me. Will start diet. May benefit from lysis of adhesions as outpatient as he is on Eliquis. Will need cardiac consultation at some point. Past Medical History Past Medical History: Atrial Fibrillation, Diabetes Mellitus, Hyperlipidemia, Hypertension History of Any Multi-Drug Resistant Organisms: None Reported Past Surgical History: Coronary Bypass/CABG Additional Past Surgical History / Comment(s): prostate removal Past Anesthesia/Blood Transfusion Reactions: No Reported Reaction Past Psychological History: No Psychological Hx Reported Smoking Status: Never smoker Past Alcohol Use History: None Reported, Occasional Past Drug Use History: None Reported - Past Family History Mother Family Medical History: CVA/TIA Additional Family Medical History / Comment(s): mother had CVA at age 85 Father Family Medical History: Cancer Additional Family Medical History / Comment(s): from throat cancer Brother(s) Family Medical History: Cancer Additional Family Medical History / Comment(s): from lung cancer Medications and Allergies Home Medications Medication Instructions Recorded Confirmed Type Atorvastatin Calcium [Lipitor] 80 mg PO HS 11/08/16 09/19/18 History Multivitamins, Thera [Multivitamin 1 tab PO DAILY 11/08/16 09/19/18 History (formulary)] Nitroglycerin Sl Tabs [Nitrostat] 0.4 mg SUBLINGUAL Q5M PRN 11/08/16 09/19/18 History Potassium Chloride [Klor-Con 10] 10 meq PO DAILY@1200 11/08/16 09/19/18 History hydrALAZINE HCL [Hydralazine HCl] 100 mg PO TID 11/08/16 09/19/18 History metFORMIN HCL [Glucophage] 500 mg PO AC-BID 11/08/16 09/19/18 History Apixaban [Eliquis] 5 mg PO BID 09/19/18 09/19/18 History Hydrochlorothiazide [Hydrodiuril] 50 mg PO DAILY 09/19/18 09/19/18 History Losartan Potassium 50 mg PO BID 09/19/18 09/19/18 History Metoprolol Succinate (ER) [Toprol 25 mg PO DAILY 09/19/18 09/19/18 History Xl] Sotalol [Betapace] 120 mg PO BID@1200,2100 09/19/18 09/19/18 History Travoprost [Travatan Z 0.004%] 1 drop BOTH EYES HS 09/19/18 09/19/18 History Allergies Allergy/AdvReac Type Severity Reaction Status Date / Time No Known Allergies Allergy Verified 09/19/18 10:54 Surgical - Exam Vital Signs Temp Pulse Resp BP Pulse Ox 97.7 F 68 18 167/77 98 09/19/18 10:21 09/19/18 10:21 09/19/18 10:21 09/19/18 10:21 09/19/18 10:21 Results - Labs 09/19/18 11:45 09/19/18 11:45 Abnormal Lab Results - Last 24 Hours (Table) 09/19/18 09/19/18 Range/Units 11:45 11:45 WBC 12.7 H (3.8-10.6) k/uL RBC 4.04 L (4.30-5.90) m/uL Hgb 12.8 L (13.0-17.5) gm/dL Neutrophils # 10.3 H (1.3-7.7) k/uL Potassium 5.2 H (3.5-5.1) mmol/L BUN 34 H (9-20) mg/dL Glucose 174 H (74-99) mg/dL ALT 20 L (21-72) U/L Diabetes panel 09/19/18 Range/Units 11:45 Sodium 137 (137-145) mmol/L Potassium 5.2 H (3.5-5.1) mmol/L Chloride 104 (98-107) mmol/L Carbon Dioxide 24 (22-30) mmol/L BUN 34 H (9-20) mg/dL Creatinine 1.23 (0.66-1.25) mg/dL Glucose 174 H (74-99) mg/dL Calcium 9.3 (8.4-10.2) mg/dL AST 33 (17-59) U/L ALT 20 L (21-72) U/L Alkaline Phosphatase 63 (38-126) U/L Total Protein 6.7 (6.3-8.2) g/dL Albumin 4.0 (3.5-5.0) g/dL Calcium panel 09/19/18 Range/Units 11:45 Calcium 9.3 (8.4-10.2) mg/dL Albumin 4.0 (3.5-5.0) g/dL Pituitary panel 09/19/18 Range/Units 11:45 Sodium 137 (137-145) mmol/L Potassium 5.2 H (3.5-5.1) mmol/L Chloride 104 (98-107) mmol/L Carbon Dioxide 24 (22-30) mmol/L BUN 34 H (9-20) mg/dL Creatinine 1.23 (0.66-1.25) mg/dL Glucose 174 H (74-99) mg/dL Calcium 9.3 (8.4-10.2) mg/dL Adrenal panel 09/19/18 Range/Units 11:45 Sodium 137 (137-145) mmol/L Potassium 5.2 H (3.5-5.1) mmol/L Chloride 104 (98-107) mmol/L Carbon Dioxide 24 (22-30) mmol/L BUN 34 H (9-20) mg/dL Creatinine 1.23 (0.66-1.25) mg/dL Glucose 174 H (74-99) mg/dL Calcium 9.3 (8.4-10.2) mg/dL Total Bilirubin 0.8 (0.2-1.3) mg/dL AST 33 (17-59) U/L ALT 20 L (21-72) U/L Alkaline Phosphatase 63 (38-126) U/L Total Protein 6.7 (6.3-8.2) g/dL Albumin 4.0 (3.5-5.0) g/dL
[2018-09-20] MEDS: HYDROmorphone 0.5 MG/0.5 ML SYRINGE IVP PRN (01:51)
[2018-09-20] MEDS: SODIUM CHLORIDE 0.9% 1,000 ML IV SCH ×3 (01:53→22:09)
[2018-09-20 07:16] LABS: Basophils % (A) 0 %; Eosinophils % (A) 0 %; HCT 37.1 % (39.0-53.0); Lymphocytes # (A) 1.4 k/uL (1.0-4.8); Lymphocytes % (A) 15 %; MCH 31.8 pg (25.0-35.0); MCHC 32.5 g/dL (31.0-37.0); Mean Platelet Volume 7.2; Monocytes # (A) 0.8 k/uL (0-1.0); Monocytes % (A) 8 %; Neutrophils # (A) 7.1 k/uL (1.3-7.7); Neutrophils % (A) 75 %; Platelet Count 278 k/uL (150-450); RBC 3.79 m/uL (4.30-5.90); RDW 13.3 % (11.5-15.5); WBC 9.5 k/uL (3.8-10.6)
[2018-09-20 07:42] LABS: Albumin 3.3 g/dL (3.5-5.0); Calcium 8.6 mg/dL (8.4-10.2); Magnesium 1.7 mg/dL (1.6-2.3); Potassium 4.2 mmol/L (3.5-5.1); Total Bilirubin 0.5 mg/dL (0.2-1.3); Total Protein 5.8 g/dL (6.3-8.2)
[2018-09-20] MEDS: APIXABAN 5 MG TAB PO SCH ×2 (08:03→22:07)
[2018-09-20] MEDS: hydrALAZINE HCL 50 MG TAB PO SCH ×3 (08:03→22:07)
[2018-09-20] MEDS: METOPROLOL SUCCINATE (ER) 25 MG TAB.ER.24H PO SCH (08:03)
[2018-09-20] MEDS ORDERED: PANTOPRAZOLE 40 MG/10 ML VIAL IVP SCH (11:00)
--- NOTE | 2018-09-20 11:12 | P.PN ---
Subjective Progress Note Date: 09/20/18 CHIEF COMPLAINT: SBO HISTORY OF PRESENT ILLNESS: Patient examined at the bedside. NG tube discontinued yesterday. Patient reports mild generalized abdominal soreness but states it is improved since yesterday. He is tolerating clear liquid diet. Denies nausea or vomiting. He reports he is passing small amounts of flatus this morning. Hemoglobin 12.0. White count 9.5. PHYSICAL EXAM: VITAL SIGNS: Currently stable. GENERAL: Well-developed in no acute distress. HEENT: No sclera icterus. Extraocular movements grossly intact. Moist buccal mucosa. Head is atraumatic, normocephalic. Hears conversational speech. No nasal drainage. NECK: Supple without lymphadenopathy. CHEST: Non-labored respirations and equal bilateral excursions. CARDIOVASCULAR: Regular rate with regular rhythm. Palpable 2+ radial pulses. ABDOMEN: Soft. Mildly distended. Minimal tenderness. Positive bowel sounds. MUSCULOSKELETAL: No clubbing, cyanosis or edema. NEUROLOGIC: No focal or lateralizing signs. Cranial nerves II through XII grossly intact. PSYCH: Appropriate affect. Alert and oriented to person, place and time. SKIN: Well perfused. Good skin turgor. ASSESSMENT: 1. Partial small bowel obstruction 2. History of previous bowel obstruction, 2017, resolved with conservative management 3. Pancreatic lesions PLAN: 1. Continue clear liquid diet 2. Increase activity as tolerated 3. GI on consult for evaluation of pancreatic lesions 4. Patient may benefit from future lysis of adhesions. Patient is prescribed Eliquis. Will need outpatient cardiology evaluation before any surgical inte rvention. 5. If patient continues to improve, he may be discharged home today from a surgical standpoint on full liquid diet for 2-3 days and follow up outpatient with Dr. Vázquez Nurse practitioner note has been reviewed by physician. Signing provider agrees with the documented findings, assessment, and plan of care. Objective - Vital Signs Vital signs: Vital Signs Temp 98.1 F 09/20/18 07:03 Pulse 59 L 09/20/18 07:03 Resp 16 09/20/18 07:03 BP 120/46 09/20/18 07:03 Pulse Ox 99 09/20/18 07:03 Intake & Output 09/19/18 09/20/18 09/20/18 18:59 06:59 18:59 Intake Total 550 320 Balance 550 320 Weight 65.771 kg Intake: Oral 550 320 Other: # Voids 2 - Labs CBC & Chem 7: 09/20/18 06:57 09/20/18 06:57 Labs: Abnormal Lab Results - Last 24 Hours (Table) 09/19/18 09/19/18 09/20/18 Range/Units 11:45 11:45 06:57 WBC 12.7 H (3.8-10.6) k/uL RBC 4.04 L (4.30-5.90) m/uL Hgb 12.8 L (13.0-17.5) gm/dL Hct (39.0-53.0) % Neutrophils # 10.3 H (1.3-7.7) k/uL Potassium 5.2 H (3.5-5.1) mmol/L BUN 34 H 30 H (9-20) mg/dL Creatinine 1.27 H (0.66-1.25) mg/dL Glucose 174 H 117 H (74-99) mg/dL ALT 20 L 20 L (21-72) U/L Total Protein 5.8 L (6.3-8.2) g/dL Albumin 3.3 L (3.5-5.0) g/dL 09/20/18 Range/Units 06:57 WBC (3.8-10.6) k/uL RBC 3.79 L (4.30-5.90) m/uL Hgb 12.0 L (13.0-17.5) gm/dL Hct 37.1 L (39.0-53.0) % Neutrophils # (1.3-7.7) k/uL Potassium (3.5-5.1) mmol/L BUN (9-20) mg/dL Creatinine (0.66-1.25) mg/dL Glucose (74-99) mg/dL ALT (21-72) U/L Total Protein (6.3-8.2) g/dL Albumin (3.5-5.0) g/dL Assessment and Plan (1) Partial obstruction of small intestine Current Visit: Yes Status: Acute Code(s): K56.600 - PARTIAL INTESTINAL OBSTRUCTION, UNSPECIFIED TO CAUSE SNOMED Code(s): 215362454
--- NOTE | 2018-09-20 11:28 | P.CONS ---
History of Present Illness - Reason for Consult Consult date: 09/20/18 Pancreatic lesions Requesting physician: Zaid Lovett - Chief Complaint Abdominal pain - History of Present Illness 82-year-old gentleman with a history of laparoscopic prostatectomy for prostate cancer not requiring chemoradiation, remote EtOH abuse 20-40s, atrial fibri llation maintained on anticoagulation, diabetes, CABG, pacemaker, admitted with acute abdominal pain. General surgery consulted for evaluation of possible small bowel obstruction presently no surgical intervention is planned at this time. Consult requested for pancreatic lesions. CT abdomen and pelvis reported cystic lesion at the pancreatic head which appeared somewhat atrophic measuring 1.8 cm and an additional 8 mm hypodense lesion in the region of the pancreatic body. Denies weight loss fever chills hematemesis hematochezia melena. No history of known gastric pancreatic or hepatobiliary disorders. No history of hepatitis. Patient reports drinking quite heavily on the weekends a mixture of beer and liquor for 20+ years mostly in his 20s-40s. Presently does not consume alcohol. White count 12.7 presently 9.5. Hemoglobin 12. Platelet 278. He 1:30. Creatinine 1.2. Total bilirubin 0.5. AST 24. ALT 20. AP 40. Lipase 199. Amylase 89. Review of Systems Constitutional: Denies fever, chills, sweats, weight gain, or loss. HEENT: Negative for migraines, blurred vision or loss, earaches, drainage, tinnitus, oral mucosal lesions, dysphagia, or odynophagia. Cardiac: Negative for chest pain, arrhythmias, or palpitation. Respiratory: Negative for shortness of breath, hemoptysis, cough, or sputum production. Gastrointestinal: See HPI for pertinent findings. Genitourinary: Negative for hematuria, urgency, frequency, polyuria, dysuria, or penile discharge. Musculoskeletal: Negative for muscle aches, swelling, arthritis, and arthralgi as. Neurologic: Negative for stroke or TIA. Endocrine: Negative for thyroid problems. Skin: Negative for rash or itching. Psychiatric: Negative history for depression and anxiety Past Medical History Past Medical History: Atrial Fibrillation, Diabetes Mellitus, Hyperlipidemia, Hypertension History of Any Multi-Drug Resistant Organisms: None Reported Past Surgical History: Coronary Bypass/CABG Additional Past Surgical History / Comment(s): prostate removal Past Anesthesia/Blood Transfusion Reactions: No Reported Reaction Past Psychological History: No Psychological Hx Reported Smoking Status: Never smoker Past Alcohol Use History: None Reported, Occasional Past Drug Use History: None Reported - Past Family History Mother Family Medical History: CVA/TIA Additional Family Medical History / Comment(s): mother had CVA at age 85 Father Family Medical History: Cancer Additional Family Medical History / Comment(s): from throat cancer Brother(s) Family Medical History: Cancer Additional Family Medical History / Comment(s): from lung cancer Medications and Allergies Home Medications Medication Instructions Recorded Confirmed Type Atorvastatin Calcium [Lipitor] 80 mg PO HS 11/08/16 09/19/18 History Multivitamins, Thera [Multivitamin 1 tab PO DAILY 11/08/16 09/19/18 History (formulary)] Nitroglycerin Sl Tabs [Nitrostat] 0.4 mg SUBLINGUAL Q5M PRN 11/08/16 09/19/18 History Potassium Chloride [Klor-Con 10] 10 meq PO DAILY@1200 11/08/16 09/19/18 History hydrALAZINE HCL [Hydralazine HCl] 100 mg PO TID 11/08/16 09/19/18 History metFORMIN HCL [Glucophage] 500 mg PO AC-BID 11/08/16 09/19/18 History Apixaban [Eliquis] 5 mg PO BID 09/19/18 09/19/18 History Hydrochlorothiazide [Hydrodiuril] 50 mg PO DAILY 09/19/18 09/19/18 History Losartan Potassium 50 mg PO BID 09/19/18 09/19/18 History Metoprolol Succinate (ER) [Toprol 25 mg PO DAILY 09/19/18 09/19/18 History Xl] Sotalol [Betapace] 120 mg PO BID@1200,2100 09/19/18 09/19/18 History Travoprost [Travatan Z 0.004%] 1 drop BOTH EYES HS 09/19/18 09/19/18 History Allergies Allergy/AdvReac Type Severity Reaction Status Date / Time No Known Allergies Allergy Verified 09/19/18 10:54 Physical Exam Vitals: Vital Signs Temp Pulse Pulse Resp BP BP Pulse Ox 09/20/18 07:03 98.1 F 59 L 16 120/46 99 09/20/18 02:19 98.2 F 76 18 133/82 96 09/19/18 20:02 98.6 F 75 18 163/87 96 09/19/18 20:00 18 09/19/18 17:18 98.2 F 18 145/85 96 09/19/18 17:15 16 09/19/18 15:57 97.7 F 65 18 156/89 95 09/19/18 13:52 56 L 18 153/100 97 09/19/18 13:14 55 L 18 167/97 98 09/19/18 11:26 52 L 18 161/86 99 Intake and Output 09/19/18 09/20/18 09/20/18 22:59 06:59 14:59 Intake Total 300 250 320 Balance 300 250 320 Intake: Oral 300 250 320 Other: # Voids 1 2 General appearance: The patient is alert, oriented, in no acute distress. HET: Head is normocephalic and atraumatic. Pupils are equal and reactive. Oropharynx is clear without lesions. Neck: Supple without lymphadenopathy. Trachea midline. Heart: S1 S2. Regular rate and rhythm. Lungs: No crackles or wheezes are heard. Abdomen: Soft, mildly bloated nontender with hypoactive bowel sounds. No peritoneal signs. No palpable organomegaly or masses. Extremities: Normal skin color and turgor. No cyanosis, rash, ulceration, clubbing, or edema. Radial and pedal pulses are 2/4 bilaterally. Neurological: No focal deficits. Strength and sensation are grossly intact. Results CBC & Chem 7: 09/20/18 06:57 09/20/18 06:57 Labs: Abnormal Lab Results - Last 24 Hours (Table) 09/19/18 09/19/18 09/20/18 Range/Units 11:45 11:45 06:57 WBC 12.7 H (3.8-10.6) k/uL RBC 4.04 L (4.30-5.90) m/uL Hgb 12.8 L (13.0-17.5) gm/dL Hct (39.0-53.0) % Neutrophils # 10.3 H (1.3-7.7) k/uL Potassium 5.2 H (3.5-5.1) mmol/L BUN 34 H 30 H (9-20) mg/dL Creatinine 1.27 H (0.66-1.25) mg/dL Glucose 174 H 117 H (74-99) mg/dL ALT 20 L 20 L (21-72) U/L Total Protein 5.8 L (6.3-8.2) g/dL Albumin 3.3 L (3.5-5.0) g/dL 09/20/18 Range/Units 06:57 WBC (3.8-10.6) k/uL RBC 3.79 L (4.30-5.90) m/uL Hgb 12.0 L (13.0-17.5) gm/dL Hct 37.1 L (39.0-53.0) % Neutrophils # (1.3-7.7) k/uL Potassium (3.5-5.1) mmol/L BUN (9-20) mg/dL Creatinine (0.66-1.25) mg/dL Glucose (74-99) mg/dL ALT (21-72) U/L Total Protein (6.3-8.2) g/dL Albumin (3.5-5.0) g/dL CT scan - abdomen: report reviewed (Dr. Pyle) Assessment and Plan (1) Lesion of pancreas Narrative/Plan: 82-year-old male presents with acute abdominal pain with CT imaging reporting multiple pancreatic lesions may represent pancreatic cyst or cystic neoplasm with unremarkable pancreatic and liver enzymes. Current Visit: Yes Status: Acute Code(s): K86.9 - DISEASE OF PANCREAS, UNSPECIFIED SNOMED Code(s): 6075361 (2) Abdominal pain Current Visit: Yes Status: Acute Code(s): R10.9 - UNSPECIFIED ABDOMINAL PAIN SNOMED Code(s): 29594153 (3) Pacemaker Current Visit: Yes Status: Acute Code(s): Z95.0 - PRESENCE OF CARDIAC PACEM EPIFANIO SNOMED Code(s): 859595004 Plan: 1. CA-19-9 requested. Outpatient EUS was advised secondary to pacemaker implantation patient not a candidate for MRI testing. Return to GI office in 4- 6 weeks for reevaluation. Thank you for this kind referral and the opportunity to participate in the care of your patient. This consultation was discussed with Dr. Pyle. The impression and plan of care have been directed as dictated.
--- NOTE | 2018-09-20 14:05 | P.HPIM ---
History of Present Illness H&P Date: 09/20/18 Chief Complaint: Abdominal pain This is an 82-year-old gentleman with history of atrial fibrillation, diabetes mellitus, hyperlipidemia, hypertension, CAD,CABG, prostate removal, pacemaker, occasional alcohol consumption, bowel obstruction 2 years ago, who presented to the ER with complaints of sharp mid abdominal pain with radiation to his back. Reports it resembles bowel obstruction 2 years ago. Denies fever or chills. Denies nausea or vomiting. Denies chest pain, palpitations or shortness of breath. Denies any focal deficits lightheadedness or dizziness.EKG reporting paced rhythm.afebrile,WBC down to 9.5 from 12.7,BUN 34, creatinine 1.23,now 30/1.27 respectively,potassium 5.2, normalized.ALT 20,amylase lipase 68, 87 on admission trending up to 89 and 199.T bili 0.5.UA negative.abdomen and pelvis CT reported multiple dilated small bowel loops suspicious for obstruction, multiple pancreatic lesions, possible pancreatic cyst or cystic neoplasm,chronic inter stitial lung disease, ectasia of the iliac arteries.IV fluids initiated with NG tube placed.surgery consulted. Review of Systems ROS Other: All systems not noted in ROS Statement are negative. ROS Statement: Those systems with pertinent positive or pertinent negative responses have been documented in the HPI. Past Medical History Past Medical History: Atrial Fibrillation, Diabetes Mellitus, Hyperlipidemia, Hypertension History of Any Multi-Drug Resistant Organisms: None Reported Past Surgical History: Coronary Bypass/CABG Additional Past Surgical History / Comment(s): prostate removal Past Anesthesia/Blood Transfusion Reactions: No Reported Reaction Past Psychological History: No Psychological Hx Reported Smoking Status: Never smoker Past Alcohol Use History: None Reported, Occasional Past Drug Use History: None Reported - Past Family History Mother Family Medical History: CVA/TIA Additional Family Medical History / Comment(s): mother had CVA at age 85 Father Family Medical History: Cancer Additional Family Medical History / Comment(s): from throat cancer Brother(s) Family Medical History: Cancer Additional Family Medical History / Comment(s): from lung cancer Medications and Allergies Home Medications Medication Instructions Recorded Confirmed Type Atorvastatin Calcium [Lipitor] 80 mg PO HS 11/08/16 09/19/18 History Multivitamins, Thera [Multivitamin 1 tab PO DAILY 11/08/16 09/19/18 History (formulary)] Nitroglycerin Sl Tabs [Nitrostat] 0.4 mg SUBLINGUAL Q5M PRN 11/08/16 09/19/18 History Potassium Chloride [Klor-Con 10] 10 meq PO DAILY@1200 11/08/16 09/19/18 History hydrALAZINE HCL [Hydralazine HCl] 100 mg PO TID 11/08/16 09/19/18 History metFORMIN HCL [Glucophage] 500 mg PO AC-BID 11/08/16 09/19/18 History Apixaban [Eliquis] 5 mg PO BID 09/19/18 09/19/18 History Hydrochlorothiazide [Hydrodiuril] 50 mg PO DAILY 09/19/18 09/19/18 History Losartan Potassium 50 mg PO BID 09/19/18 09/19/18 History Metoprolol Succinate (ER) [Toprol 25 mg PO DAILY 09/19/18 09/19/18 History Xl] Sotalol [Betapace] 120 mg PO BID@1200,2100 09/19/18 09/19/18 History Travoprost [Travatan Z 0.004%] 1 drop BOTH EYES HS 09/19/18 09/19/18 History Allergies Allergy/AdvReac Type Severity Reaction Status Date / Time No Known Allergies Allergy Verified 09/19/18 10:54 Physical Exam Vitals: Vital Signs Temp Pulse Pulse Resp BP BP Pulse Ox 09/20/18 07:03 98.1 F 59 L 16 120/46 99 09/20/18 02:19 98.2 F 76 18 133/82 96 09/19/18 20:02 98.6 F 75 18 163/87 96 09/19/18 20:00 18 09/19/18 17:18 98.2 F 18 145/85 96 09/19/18 17:15 16 09/19/18 15:57 97.7 F 65 18 156/89 95 09/19/18 13:52 56 L 18 153/100 97 09/19/18 13:14 55 L 18 167/97 98 09/19/18 11:26 52 L 18 161/86 99 Intake and Output 09/19/18 09/20/18 09/20/18 22:59 06:59 14:59 Intake Total 300 250 320 Balance 300 250 320 Intake: Oral 300 250 320 Other: # Voids 1 2 PHYSICAL EXAM: VITAL SIGNS: [as above] GENERAL: sitting up in bed, no acute distress HEENT: Conjunctivae normal. eyes normal. oral mucosa moist NECK: No JVD. No thyroid enlargement. No LNs CARDIOVASCULAR: S1, S2 regular.. No murmur RESPIRATION: Breath sounds diminished in the bases. No rhonchi or crackles. No bronchial breathing. ABDOMEN: Soft,nondistended, diffuse tenderness . No guarding. no masses pal pable. No ascites, No hepatosplenomegaly.Bowel sounds heard. LEGS: No edema. no swelling PSYCHIATRY: Alert and oriented X3, mood and affect normal. NERVOUS SYSTEM: Cranial N 2-12 grossly normal. Moves all 4 limbs. Diffuse weakness, No focal deficits. Strength and sensation grossly intact.. Skin: no lesions, no rash Lymphatic system. No LN neck axilla or groin. Results CBC & Chem 7: 09/20/18 06:57 09/20/18 06:57 Labs: Abnormal Lab Results - Last 24 Hours (Table) 09/19/18 09/19/18 09/20/18 Range/Units 11:45 11:45 06:57 WBC 12.7 H (3.8-10.6) k/uL RBC 4.04 L (4.30-5.90) m/uL Hgb 12.8 L (13.0-17.5) gm/dL Hct (39.0-53.0) % Neutrophils # 10.3 H (1.3-7.7) k/uL Potassium 5.2 H (3.5-5.1) mmol/L BUN 34 H 30 H (9-20) mg/dL Creatinine 1.27 H (0.66-1.25) mg/dL Glucose 174 H 117 H (74-99) mg/dL ALT 20 L 20 L (21-72) U/L Total Protein 5.8 L (6.3-8.2) g/dL Albumin 3.3 L (3.5-5.0) g/dL 09/20/18 Range/Units 06:57 WBC (3.8-10.6) k/uL RBC 3.79 L (4.30-5.90) m/uL Hgb 12.0 L (13.0-17.5) gm/dL Hct 37.1 L (39.0-53.0) % Neutrophils # (1.3-7.7) k/uL Potassium (3.5-5.1) mmol/L BUN (9-20) mg/dL Creatinine (0.66-1.25) mg/dL Glucose (74-99) mg/dL ALT (21-72) U/L Total Protein (6.3-8.2) g/dL Albumin (3.5-5.0) g/dL Thrombosis Risk Factor Assmnt - Choose All That Apply Any of the Below Risk Factors Present?: No Other Risk Factors: Yes Each Risk Factor Represents 3 Points: Age 75 years or older Thrombosis Risk Factor Assessment Total Risk Factor Score: 3 Thrombosis Risk Factor Assessment Level: Moderate Risk Assessment and Plan Assessment: -partial small bowel obstruction -multiple pancreatic lesions, possible pancreatic cyst or cystic neoplasm -possible chronic interstitial lung disease, - ectasia of the iliac arteries. -CAD, history of CABG, pacemaker -chronic atrial fibrillation,on Eliquis -Diabetes mellitus -Hypertension -Hyperlipidemia Plan: Continue current medication regime ,monitoring and symptomatic treatment. Evaluated by surgery, NG tube dc'd clear liquid diet initiated as patient passing flatus,abdominal pain resolved. increase ambulation as tolerated. Gi consulted, rec. pending. Aggressive pulmonary toileting with incentive sp irometer ordered.GI and DVT prophylaxis in place.home meds have been reviewed and resumed.Further recommendations to follow. The impression and plan of care has been dictated as directed. : I performed a history and examination of this patient, discussed the same with the dictator. I agree with the dictator's note ,documented as a scribe. Any additional findings or plans will be noted. Time taken: 35 minutes
[2018-09-20] MEDS: LATANOPROST 0.005% OPHTH DROPS 2.5 ML BTL BOTH EYES SCH (22:08)
[2018-09-21] MEDS ORDERED: PANTOPRAZOLE 40 MG TABLET PO SCH (07:30)
[2018-09-21 08:06] VITALS: BP 108/60; PULSE 70; RESP 15; TEMP 98
[2018-09-21] MEDS: APIXABAN 5 MG TAB PO SCH (08:37)
[2018-09-21] MEDS: hydrALAZINE HCL 50 MG TAB PO SCH ×2 (08:37→08:39)
[2018-09-21] MEDS: SODIUM CHLORIDE 0.9% 1,000 ML IV SCH (08:37)
[2018-09-21] MEDS: METOPROLOL SUCCINATE (ER) 25 MG TAB.ER.24H PO SCH (08:37)
--- NOTE | 2018-09-21 08:47 | P.PN ---
Progress Note - Text Progress Note Date: 09/21/18 The patient feels well. He is tolerating his regular diet. He has had flatus and bowel movement. On exam his vital signs are stable. His abdomen soft. Patient has a resolving partial small bowel charge. He will be most likely discharged home today.
--- NOTE | 2018-09-21 12:37 | P.DS ---
Providers Date of admission: 09/19/18 15:31 Expected date of discharge: 09/21/18 Attending physician: Zaid Lovett Consults: 09/19/18 15:36 Consult Physician Routine Consulting Provider: Guerita Vázquez Consult Reason/Comments: partial SBO Do you want consulting provider notified?: Yes Consult Physician Routine Consulting Provider: Carlee Pyle Consult Reason/Comments: partial SBO, pancreatic lesions Do you want consulting provider notified?: Yes Primary care physician: Zaid Lovett Hospital Course: This is an 82-year-old gentleman with history of atrial fibrillation, diabetes mellitus, hyperlipidemia, hypertension, CAD,CABG, prostate removal, pacemaker, occasional alcohol consumption, bowel obstruction 2 years ago, who presented to the ER with complaints of sharp mid abdominal pain with radiation to his back. Reports it resembles bowel obstruction 2 years ago. Denies fever or chills. Denies nausea or vomiting. Denies chest pain, palpitations or shortness of breath. Denies any focal deficits lightheadedness or dizziness.EKG reporting paced rhythm.afebrile,WBC down to 9.5 from 12.7,BUN 34, creatinine 1.23,now 30/1.27 respectively,potassium 5.2, normalized.ALT 20,amylase lipase 68, 87 on admission trending up to 89 and 199.T bili 0.5.UA negative.abdomen and pelvis CT reported multiple dilated small bowel loops suspicious for obstruction, multiple pancreatic lesions, possible pancreatic cyst or cystic neoplasm,chronic interstitial lung disease, ectasia of the iliac arteries.IV fluids initiated with NG tube placed.surgery consulted. 09/21/2018: Patient did well in the afternoon and evening tolerating a clear and then regular diet. Surgery had seen him and recommended possible outpatient lysis of adhesions. GI is planning outpatient evaluation for the multiple pancreatic lesions. He is not a candidate for MRI due to pacemaker placement. A CA 199 ordered by them was 7.4, which is in the normal range. He'll be discharged home with follow-up with him outpatient as well as general surgery. Patient Condition at Discharge: Good Plan - Discharge Summary Discharge Rx Participant: Yes New Discharge Prescriptions: Continue metFORMIN HCL [Glucophage] 500 mg PO AC-BID Atorvastatin Calcium [Lipitor] 80 mg PO HS hydrALAZINE HCL 100 mg PO TID Nitroglycerin Sl Tabs [Nitrostat] 0.4 mg SUBLINGUAL Q5M PRN PRN Reason: Angina Multivitamins, Thera [Multivitamin (formulary)] 1 tab PO DAILY Travoprost [Travatan Z 0.004%] 1 drop BOTH EYES HS Sotalol [Betapace] 120 mg PO BID@1200,2100 Metoprolol Succinate (ER) [Toprol XL] 25 mg PO DAILY Losartan Potassium 50 mg PO BID Apixaban [Eliquis] 5 mg PO BID Hydrochlorothiazide [Hydrodiuril] 50 mg PO DAILY Discharge Medication List Atorvastatin Calcium [Lipitor] 80 mg PO HS 11/08/16 [History] Multivitamins, Thera [Multivitamin (formulary)] 1 tab PO DAILY 11/08/16 [History] Nitroglycerin Sl Tabs [Nitrostat] 0.4 mg SUBLINGUAL Q5M PRN 11/08/16 [History] hydrALAZINE HCL 100 mg PO TID 11/08/16 [History] metFORMIN HCL [Glucophage] 500 mg PO AC-BID 11/08/16 [History] Apixaban [Eliquis] 5 mg PO BID 09/19/18 [History] Hydrochlorothiazide [Hydrodiuril] 50 mg PO DAILY 09/19/18 [History] Losartan Potassium 50 mg PO BID 09/19/18 [History] Metoprolol Succinate (ER) [Toprol XL] 25 mg PO DAILY 09/19/18 [History] Sotalol [Betapace] 120 mg PO BID@1200,2100 09/19/18 [History] Travoprost [Travatan Z 0.004%] 1 drop BOTH EYES HS 09/19/18 [History] Follow up Appointment(s)/Referral(s): Guerita Vázquez MD [STAFF PHYSICIAN] - 10/08/18 (please schedule appt for patient) Carlee Pyle MD [STAFF PHYSICIAN] - 10/24/18 1:30 pm Zaid Lovett MD [Primary Care Provider] - 3 Days Patient Instructions/Handouts: Bowel Obstruction (DC) Activity/Diet/Wound Care/Special Instructions: pending patient tolerating regular diet with no nausea vomiting or abdominal pain. outpatient EUS as recommended per GI secondary to patient not candidate for MRI testing given pacemaker Discharge Disposition: HOME SELF-CARE
--- NOTE | 2018-09-21 14:26 | CONS ---
CONSULTATION DATE OF VISIT: 09/21/2018 REQUESTING PHYSICIAN: Dr. Lovett The patient is an 82-year-old pleasant white male admitted to hospital with partial small bowel obstruction. The abdominal pain is being followed by surgery. He is doing much better. Obstruction is resolving. On a full liquid diet, tolerating well. . He was seen in consultation yesterday because of incidental finding of cystic lesion in the pancreatic head measuring about 1.8 cm in size with several aureliano cyst measuring 8 mm in size. The patient denies any prior history of chronic pancreatitis. PHYSICAL EXAMINATION: He appears comfortable, no apparent distress. Vital signs is stable. Blood pressure is 132/61, temperature 99, and pulse rate 69. HEENT examination unremarkable. Conjunctivae pink. Sclerae anicteric. Oral cavity, no lesions. NECK: No JVD or lymph node enlargement. CHEST: Clear to auscultation. HEART: Regular rate and rhythm. ABDOMEN: Soft. Bowel sounds are positive. No organomegaly. EXTREMITIES: No pedal edema. SKIN: No rashes. NEUROLOGIC: Alert and oriented x3. No focal deficits. LABS: From today WBC 9.5, hemoglobin 12, platelets are normal. Basic metabolic panel is within normal limits. BUN 30, creatinine 1.27. Amylase and lipase are normal. IMPRESSION: 1. Acute small-bowel obstruction, resolving. General surgery following the patient closely. 2. Pancreatic cyst measuring 1.8 cm in size in the head of the pancreas with additional small cysts scattered in the body of the pancreas which are incidental findings noted on a recent CT scan of the abdomen. The patient with no history of chronic pancreatitis in the past. Remote history of alcohol use. RECOMMENDATION: Had a lengthy discussion with the patient regarding further workup of incidental finding of the pancreatic cysts noted on recent imaging studies. Since the cyst size and no other imaging studies for comparison, I suggested that we can follow them on an outpatient basis with a repeat CT of the abdomen in 6 months versus endoscopic ultrasound of the pancreas. Will discuss this further during outpatient followup visit in 2-3 weeks following this hospitalization. Thank you for this consultation. MYLENE / JHOANA: [id number] /
== END 2018-09-21 14:00 | disposition home or self-care (01) | DRG 389 ==
LOC: EC 10:13 → 4SSUR 15:31
PROVIDERS: ADMIT Family Medicine; ATTEND Family Medicine
DX: K56.600 Partial intestinal obstruction, unspecified as to cause (principal); K86.2 Cyst of pancreas; I48.91 Unspecified atrial fibrillation; I10 Essential (primary) hypertension; E78.5 Hyperlipidemia, unspecified; E11.9 Type 2 diabetes mellitus without complications; I77.811 Abdominal aortic ectasia; D72.829 Elevated white blood cell count, unspecified; E86.0 Dehydration; E87.5 Hyperkalemia; I25.10 Atherosclerotic heart disease of native coronary artery without angina pectoris; I48.2 Chronic atrial fibrillation; Z79.01 Long term (current) use of anticoagulants; Z79.84 Long term (current) use of oral hypoglycemic drugs; Z79.899 Other long term (current) drug therapy; Z80.1 Family history of malignant neoplasm of trachea, bronchus and lung; Z80.8 Family history of malignant neoplasm of other organs or systems; Z82.3 Family history of stroke; Z85.46 Personal history of malignant neoplasm of prostate; Z90.79 Acquired absence of other genital organ(s); Z95.1 Presence of aortocoronary bypass graft
CPT/HCPCS: 36415; 71045; 74177; 80053; 81003; 82150; 82553; 83605; 83690; 83735; 84484; 85025; 85610; 85730; 86301; 93005; 96361; 96374; 96375; 96376; 99285

== ENCOUNTER → 2018-12-31 | Outpatient (CLI) | payer MEDICARE, OTHER ==
--- NOTE | 2018-12-31 12:56 | US ---
EXAMINATION TYPE: US kidneys/renal and bladder DATE OF EXAM: 12/31/2018 COMPARISON: US 11/10/16, CT 09/19/18 CLINICAL HISTORY: N17.9 Acute kidney failure, unspecified. EXAM MEASUREMENTS: Right Kidney: 9.7 x 5.4 x 5.1 cm Left Kidney: 10.6 x 5.4 x 5.1 cm Post Void Residual Volume: 25.2 mL Right Kidney: No hydronephrosis or masses seen Left Kidney: No hydronephrosis or nephrolithiasis Large mid pole cyst = 8.3 x 6.6 x 5.1 cm (larger th an previously seen) Bladder: wnl Bilateral Jets seen: Yes Normal Post Void Residual: Yes IMPRESSION: 1. No hydronephrosis or nephrolithiasis. Large left renal cyst is increased in size measuring 8.3 x 6 .6 cm and previously measuring 5.5 x 6.7 cm.
== END | disposition home or self-care (01) ==
LOC: RADUSWWP 10:50
PROVIDERS: ATTEND Internal Medicine
DX: N28.1 Cyst of kidney, acquired (principal)
CPT/HCPCS: 76770

== ENCOUNTER → 2019-01-31 | Outpatient (CLI) | payer MEDICARE, OTHER ==
--- NOTE | 2019-02-01 11:01 | ECHOF ---
Referral Reason:I25.10 ASHD, I27.20 Pulmonary hypertension, unspec MEASUREMENTS -------- HEIGHT: 165.1 cm WEIGHT: 68.0 kg BP: RVIDd: 4.0 cm (< 3.3) IVSd: 1.4 cm (0.6 - 1.1) LVIDd: 4.2 cm (3.9 - 5.3) LVPWd: 1.4 cm (0.6 - 1.1) IVSs: 1.8 cm LVIDs: 3.0 cm LVPWs: 2.1 cm LAESV Index (A-L): 30.70 ml/m Ao Diam: 3.5 cm (2.0 - 3.7) AV Cusp: 2.2 cm (1.5 - 2.6) LA Diam: 3.5 cm (2.7 - 3.8) MV EXCURSION: 15.271 mm (> 18.000) MV EF SLOPE: 32 mm/s (70 - 150) EPSS: 1.0 cm MV E Alexander: 0.49 m/s MV DecT: 226 ms MV A Alexander: 0.92 m/s MV E/A Ratio: 0.53 RAP: 5.00 mmHg RVSP: 33.93 mmHg FINDINGS -------- Sinus rhythm. This was a technically adequate study. The left ventricular size is normal. There is moderate concentric left ventricular hypertrophy. O verall left ventricular systolic function is low-normal with, an EF between 50 - 55 %. There is par adoxical/dysynergic septal motion consistent with post-operative status. The diastolic filling shavon musa is normal for the age of the patient 10.40. The right ventricle is mild to moderately enlarged. LA is midly dilated 29-33ml/m2. The right atrium is mildly enlarged. Electronic pacemaker lead seen in the right atrial cavity. Interatrial and interventricular septum intact. There is mild to moderate aortic valve sclerosis. There is no evidence of aortic regurgitation. T here is no evidence of aortic stenosis. Mild mitral annular calcification present. Mild mitral regurgitation is present. Mild tricuspid regurgitation present. There is borderline pulmonary hypertension. The right ventr icular systolic pressure, as measured by Doppler, is 33.93mmHg. There is no pulmonic regurgitation present. The aortic root size is normal. IVC Not well visulized. There is no pericardial effusion. CONCLUSIONS -------- 1. Sinus rhythm. 2. This was a technically adequate study. 3. The left ventricular size is normal. 4. There is moderate concentric left ventricular hypertrophy. 5. Overall left ventricular systolic function is low-normal with, an EF between 50 - 55 %. 6. There is paradoxical/dysynergic septal motion consistent with post-operative status. 7. The diastolic filling pattern is normal for the age of the patient 10.40 8. The right ventricle is mild to moderately enlarged. 9. LA is midly dilated 29-33ml/m2. 10. The right atrium is mildly enlarged. 11. Electronic pacemaker lead seen in the right atrial cavity. 12. Interatrial and interventricular septum intact. 13. There is mild to moderate aortic valve sclerosis. 14. There is no evidence of aortic regurgitation. 15. There is no evidence of aortic stenosis. 16. Mild mitral annular calcification present. 17. Mild mitral regurgitation is present. 18. Mild tricuspid regurgitation present. 19. There is borderline pulmonary hypertension. 20. There is no pulmonic regurgitation present. 21. The aortic root size is normal. 22. IVC Not well visulized. 23. There is no pericardial effusion. MACHINE CELL TUBER: Nunu Casanova RDCS
== END | disposition home or self-care (01) ==
LOC: RADECHMAIN 14:34
PROVIDERS: ATTEND Internal Medicine Cardiovascular Disease
DX: I08.1 Rheumatic disorders of both mitral and tricuspid valves (principal); I25.10 Atherosclerotic heart disease of native coronary artery without angina pectoris; I11.9 Hypertensive heart disease without heart failure; I27.20 Pulmonary hypertension, unspecified; Z95.0 Presence of cardiac pacemaker; Z98.890 Other specified postprocedural states
CPT/HCPCS: 93306